=== PATIENT | male | born 1955 | race Two or more races ===

== ENCOUNTER 2022-04-03 20:47 | Inpatient (IN) | payer MEDICARE, MEDICAID ==
[~2022-04-03] VITALS: Ht 162.6 cm; Wt 64.5 kg
[~2022-04-03 20:47] MED LIST: ALBUAER3 IN; AMOX-263 PO; AZIT500T66 PO; FLUT110A INH; Glipizide PO; LIS5T PO; METO25TA93 PO; SENN8.6T92 PO
[2022-04-03] MEDS ORDERED: ALBUTEROL SULF 2.5 MG/0.5ML(0.5%) NEB SOLN NEB ONE (22:00)
[2022-04-03] MEDS ORDERED: methylPREDNISolone SOD SUCC 125 MG/2 ML VL IV ONE (22:00)
[2022-04-03] MEDS ORDERED: IPRATROPIUM BROM 0.5 MG/2.5ML INH SOL NEB ONE (22:00)
[2022-04-03 22:12] LABS: Basophils # (auto) 0 10 ^3/uL (0-0.2); Basophils % (auto) 0.3 % (0.0-2.0); Eosinophils # (auto) 0.1 10 ^3/uL (0-0.8); Eosinophils % (auto) 1.6 % (0.0-7.0); Hematocrit 31.7 % (41.0-53.0); Hemoglobin 10.6 g/dL (13.5-17.5); Lymphocytes # (auto) 1.5 10 ^3/uL (0.4-5.4); Lymphocytes % (auto) 20.8 % (10.0-50.0); Mean Corpuscular Hemoglobin 31.2 pg (28.0-32.0); Mean Corpuscular Hgb Conc. 33.3 g/dL (32.0-36.0); Mean Corpuscular Volume 93.8 fL (80.0-100.0); Monocytes % (auto) 13.4 % (0.0-12.0); Neutrophils # (auto) 4.5 10 ^3/uL (1.6-8.6); Neutrophils % (auto) 63.9 % (37.0-80.0); Red Blood Cells 3.38 10^6/uL (4.5-5.90); Red Cell Distribution Width 13.2 % (11.8-14.3); White Blood Cell 7.1 10^3/uL (4.4-10.8)
[2022-04-03 22:31] LABS: Albumin 3.8 g/dL (3.4-5.0); Calcium 8.9 mg/dL (8.5-10.1); Potassium 5.2 mmol/L (3.5-5.1)
[2022-04-03 22:35] LABS: BUN/Creatinine Ratio 24.8; Bilirubin, Total 0.4 mg/dL (0.2-1.0); Total Protein 8.4 g/dL (6.4-8.2)
[2022-04-04] MEDS ORDERED: ACETAMINOPHEN 325 MG TAB PO PRN (00:30)
[2022-04-04] MEDS ORDERED: ONDANSETRON HCL 4 MG/2 ML VIAL IV PRN (00:30)
[2022-04-04] MEDS ORDERED: ALBUTEROL SULF 2.5 MG/0.5ML(0.5%) NEB SOLN NEB PRN (00:30)
[2022-04-04] MEDS ORDERED: MORPHINE SULFATE INJ 2 MG/ml SYRG IV PRN (00:30)
[2022-04-04] MEDS ORDERED: HYDROcodone-ACET 5/325MG TAB PO PRN (00:30)
[2022-04-04] MEDS ORDERED: DEXTROSE (50%) 50ML SYRG IV PRN (00:30)
[2022-04-04] MEDS ORDERED: LORazepam 0.5 MG TAB PO PRN (00:30)
[2022-04-04] MEDS ORDERED: SODIUM CHLORIDE 0.9% 1,000 ML IV SCH (00:30)
[2022-04-04] MEDS ORDERED: DOCUSATE SOD 100 MG CAP PO PRN (00:30)
[2022-04-04 00:46] VITALS: BP 153/74
[2022-04-04 01:09] LABS: Urine Bacteria NONE SEEN /hpf (None Seen); Urine Blood Negative /uL (Negative); Urine Specific Gravity 1.007 (1.001-1.035); Urine WBC <1 /hpf (0 - 3)
[2022-04-04] MEDS: cefTRIAXone 1GM/50ML D5W 50 ML IV SCH ×2 (01:35→11:13)
[2022-04-04] MEDS: AZITHROMYCIN 500MG/ 250ML 250 ML IV SCH ×2 (02:05→11:31)
[2022-04-04 06:24] LABS: Basophils # (auto) 0 10 ^3/uL (0-0.2); Basophils % (auto) 0.1 % (0.0-2.0); Eosinophils # (auto) 0 10 ^3/uL (0-0.8); Hematocrit 31.9 % (41.0-53.0); Hemoglobin 10.7 g/dL (13.5-17.5); Lymphocytes # (auto) 0.5 10 ^3/uL (0.4-5.4); Lymphocytes % (auto) 6.9 % (10.0-50.0); Mean Corpuscular Hemoglobin 31.8 pg (28.0-32.0); Mean Corpuscular Hgb Conc. 33.6 g/dL (32.0-36.0); Mean Corpuscular Volume 94.5 fL (80.0-100.0); Monocytes # (auto) 0.1 10 ^3/uL (0-1.3); Monocytes % (auto) 1.9 % (0.0-12.0); Neutrophils % (auto) 91.1 % (37.0-80.0); Nucleated Red Blood Cells % 0.1 %; Red Blood Cells 3.37 10^6/uL (4.5-5.90); Red Cell Distribution Width 13.2 % (11.8-14.3); White Blood Cell 7.7 10^3/uL (4.4-10.8)
[2022-04-04 06:31] LABS: Calcium 9.1 mg/dL (8.5-10.1); Potassium 5.2 mmol/L (3.5-5.1)
[2022-04-04 06:36] LABS: BUN/Creatinine Ratio 34.3
[2022-04-04] MEDS: ACCU-CHEK COMFORT CURVE STRIP VI SCH ×4 (06:49→23:34)
[2022-04-04] MEDS: InsuLIN REG 1unit/0.01ml Soln (100units/ml) SC SCH ×4 (06:49→23:36)
[2022-04-04 17:00] VITALS: BP 147/74
[2022-04-04 19:25] VITALS: BP 147/74
[2022-04-04] MEDS ORDERED: AMLO-496 PO (19:36)
[2022-04-04] MEDS ORDERED: LOSA-39 PO (19:36)
[2022-04-04] MEDS ORDERED: CARV25TA55 PO (19:36)
[2022-04-04] MEDS ORDERED: SITA100T7 PO (19:36)
[2022-04-04] MEDS ORDERED: DAPA1TAB4 PO (19:36)
[2022-04-04] MEDS ORDERED: ATOR20TA50 PO (19:36)
[2022-04-04 22:00] VITALS: BP 134/70
[2022-04-05 04:26] LABS: BUN/Creatinine Ratio 35.1; Calcium 9.3 mg/dL (8.5-10.1); Magnesium 2.5 mg/dL (1.6-2.6); Potassium 4.8 mmol/L (3.5-5.1)
[2022-04-05 05:00] VITALS: BP 132/71
[2022-04-05] MEDS: ACCU-CHEK COMFORT CURVE STRIP VI SCH ×4 (05:47→23:17)
[2022-04-05] MEDS: InsuLIN REG 1unit/0.01ml Soln (100units/ml) SC SCH ×4 (05:51→23:19)
[2022-04-05 08:00] VITALS: BP 142/80
[2022-04-05] MEDS: cefTRIAXone 1GM/50ML D5W 50 ML IV SCH (09:51)
[2022-04-05] MEDS: AZITHROMYCIN 500MG/ 250ML 250 ML IV SCH (09:53)
[2022-04-05 12:00] VITALS: BP 117/75
[2022-04-05] MEDS: IPRATROPIUM BROM 0.5 MG/2.5ML INH SOL NEB SCH ×3 (12:58→23:51)
[2022-04-05] MEDS: ALBUTEROL SULF 2.5 MG/0.5ML(0.5%) NEB SOLN NEB SCH ×3 (12:58→23:51)
[2022-04-05] MEDS: ACETYLCYSTEINE 10 %(100MG/ML) SOL 4ML NEB SCH ×3 (12:59→23:51)
[2022-04-05] MEDS: methylPREDNISolone SOD SUCC 40 MG/ML VL IV SCH ×2 (15:08→19:38)
[2022-04-05 16:00] VITALS: BP 144/72
[2022-04-05 22:00] VITALS: BP 140/73
[2022-04-05] MEDS: INSULIN LANTUS (GLARGINE) 1 /0.01ml (100units/ml) SC SCH (23:18)
[2022-04-06] MEDS: methylPREDNISolone SOD SUCC 40 MG/ML VL IV SCH ×4 (00:02→22:39)
[2022-04-06 05:00] VITALS: BP 139/70
[2022-04-06] MEDS: IPRATROPIUM BROM 0.5 MG/2.5ML INH SOL NEB SCH ×3 (06:21→18:22)
[2022-04-06] MEDS: ALBUTEROL SULF 2.5 MG/0.5ML(0.5%) NEB SOLN NEB SCH ×3 (06:21→18:22)
[2022-04-06] MEDS: ACETYLCYSTEINE 10 %(100MG/ML) SOL 4ML NEB SCH ×3 (06:22→18:22)
[2022-04-06] MEDS: InsuLIN REG 1unit/0.01ml Soln (100units/ml) SC SCH ×3 (06:47→16:52)
[2022-04-06] MEDS: ACCU-CHEK COMFORT CURVE STRIP VI SCH ×3 (06:47→20:00)
[2022-04-06] MEDS: INSULIN LANTUS (GLARGINE) 1 /0.01ml (100units/ml) SC SCH ×2 (06:49→22:40)
[2022-04-06] MEDS: cefTRIAXone 1GM/50ML D5W 50 ML IV SCH (08:57)
[2022-04-06] MEDS: AZITHROMYCIN 500MG/ 250ML 250 ML IV SCH (08:58)
[2022-04-06 09:26] VITALS: BP 154/83
[2022-04-06] MEDS ORDERED: amLODIPine BESYLATE 5 MG TAB PO ONE (10:00)
[2022-04-06] MEDS ORDERED: FUROSEMIDE 20 MG/2 ML VIAL IV SCH (10:00)
[2022-04-06] MEDS ORDERED: CARVEDILOL 12.5 MG TAB PO ONE (10:00)
[2022-04-06] MEDS ORDERED: FUROSEMIDE 20 MG/2 ML VIAL IV ONE (10:00)
[2022-04-06] MEDS ORDERED: CHOL100029 PO (10:21)
[2022-04-06] MEDS ORDERED: ALBU108A5 IN (10:21)
[2022-04-06] MEDS ORDERED: GLIP10TA9 PO (10:21)
[2022-04-06] MEDS ORDERED: FAMO-12 PO (10:21)
[2022-04-06] MEDS ORDERED: UMEC1AER IN (10:21)
[2022-04-06] MEDS ORDERED: CHOL100040 PO (10:26)
[2022-04-06] MEDS ORDERED: LOSARTAN POTASSIUM 50 MG TAB PO ONE ×3 (11:00→11:30)
[2022-04-06 13:00] VITALS: BP 139/66
[2022-04-06 16:56] VITALS: BP 137/69
[2022-04-06 22:00] VITALS: BP 150/79
[2022-04-06] MEDS: ATORVASTATIN 20 MG TAB PO SCH (22:39)
[2022-04-07] MEDS: ACCU-CHEK COMFORT CURVE STRIP VI SCH ×4 (00:46→17:46)
[2022-04-07] MEDS: InsuLIN REG 1unit/0.01ml Soln (100units/ml) SC SCH ×5 (00:50→23:05)
[2022-04-07 04:02] VITALS: BP 150/79
[2022-04-07 05:00] VITALS: BP 124/75
[2022-04-07 05:35] LABS: BUN/Creatinine Ratio 40.4; Calcium 9.2 mg/dL (8.5-10.1); Potassium 4.4 mmol/L (3.5-5.1)
[2022-04-07] MEDS: methylPREDNISolone SOD SUCC 40 MG/ML VL IV SCH ×2 (06:03→21:04)
[2022-04-07] MEDS: IPRATROPIUM BROM 0.5 MG/2.5ML INH SOL NEB SCH ×5 (06:46→23:40)
[2022-04-07] MEDS: ALBUTEROL SULF 2.5 MG/0.5ML(0.5%) NEB SOLN NEB SCH ×5 (06:46→23:40)
[2022-04-07] MEDS: ACETYLCYSTEINE 10 %(100MG/ML) SOL 4ML NEB SCH ×5 (06:47→23:40)
[2022-04-07] MEDS: INSULIN LANTUS (GLARGINE) 1 /0.01ml (100units/ml) SC SCH ×2 (07:03→23:05)
[2022-04-07] MEDS: cefTRIAXone 1GM/50ML D5W 50 ML IV SCH (09:08)
[2022-04-07] MEDS: AZITHROMYCIN 500MG/ 250ML 250 ML IV SCH (09:08)
[2022-04-07] MEDS: CHOLECALCIFEROL (VITD3) 1,000UNIT=25mCg TAB PO SCH (09:09)
[2022-04-07] MEDS: FUROSEMIDE 20 MG/2 ML VIAL IV SCH (09:09)
[2022-04-07] MEDS: ASPirin 81 mg TAB PO SCH (09:10)
[2022-04-07] MEDS: CARVEDILOL 12.5 MG TAB PO SCH (09:10)
[2022-04-07] MEDS: LOSARTAN POTASSIUM 50 MG TAB PO SCH (09:10)
[2022-04-07 09:25] VITALS: BP 152/84
[2022-04-07] MEDS ORDERED: BISACODYL 5 MG EC TAB PO ONE ×2 (11:00→12:15)
[2022-04-07] MEDS ORDERED: POLYETHYLENE GLYCOL 17 GM PWDR PO ONE ×2 (11:00→12:15)
[2022-04-07 17:18] VITALS: BP 136/77
[2022-04-07] MEDS: amLODIPine BESYLATE 5 MG TAB PO SCH (21:04)
[2022-04-07] MEDS: ATORVASTATIN 20 MG TAB PO SCH (21:05)
[2022-04-07 22:00] VITALS: BP 116/71
[2022-04-08 05:00] VITALS: BP 114/75
[2022-04-08] MEDS: INSULIN LANTUS (GLARGINE) 1 /0.01ml (100units/ml) SC SCH (06:13)
[2022-04-08] MEDS: InsuLIN REG 1unit/0.01ml Soln (100units/ml) SC SCH ×2 (06:13→12:18)
[2022-04-08] MEDS: ACCU-CHEK COMFORT CURVE STRIP VI SCH ×3 (06:13→12:17)
[2022-04-08] MEDS: IPRATROPIUM BROM 0.5 MG/2.5ML INH SOL NEB SCH ×2 (06:52→13:02)
[2022-04-08] MEDS: ACETYLCYSTEINE 10 %(100MG/ML) SOL 4ML NEB SCH ×2 (06:52→13:02)
[2022-04-08] MEDS: ALBUTEROL SULF 2.5 MG/0.5ML(0.5%) NEB SOLN NEB SCH ×2 (06:52→13:02)
[2022-04-08] MEDS: FUROSEMIDE 20 MG/2 ML VIAL IV SCH (08:49)
[2022-04-08] MEDS: cefTRIAXone 1GM/50ML D5W 50 ML IV SCH (08:49)
[2022-04-08] MEDS: methylPREDNISolone SOD SUCC 40 MG/ML VL IV SCH (08:49)
[2022-04-08] MEDS: LOSARTAN POTASSIUM 50 MG TAB PO SCH (08:50)
[2022-04-08] MEDS: CARVEDILOL 12.5 MG TAB PO SCH (08:50)
[2022-04-08] MEDS: ASPirin 81 mg TAB PO SCH (08:50)
[2022-04-08] MEDS: amLODIPine BESYLATE 5 MG TAB PO SCH (08:51)
[2022-04-08 09:00] VITALS: BP 140/64
[2022-04-08] MEDS: CHOLECALCIFEROL (VITD3) 1,000UNIT=25mCg TAB PO SCH (10:00)
[2022-04-08] MEDS ORDERED: POLYETHYLENE GLYCOL 17 GM PWDR PO SCH (10:00)
[2022-04-08] MEDS ORDERED: ERGO1CAP23 PO (11:25)
[2022-04-08] MEDS ORDERED: PRED10TA PO (11:25)
[2022-04-08] MEDS ORDERED: PRED20TA2 PO (11:25)
[2022-04-08] MEDS ORDERED: FURO1TAB33 PO (11:25)
[2022-04-08] MEDS ORDERED: PRE5T PO (11:25)
[2022-04-08 11:30] VITALS: BP 140/64
== END 2022-04-08 13:16 | disposition home or self-care (01) | DRG 177 ==
LOC: ER 20:47 → OVERFLOW 04-04 00:23 → CENTRAL 04-04 17:03
PROVIDERS: ADMIT Hospitalist; ATTEND Internal Medicine
DX: J15.6 Pneumonia due to other Gram-negative bacteria (principal); I50.33 Acute on chronic diastolic (congestive) heart failure; J96.20 Acute and chronic respiratory failure, unspecified whether with hypoxia or hypercapnia; J44.1 Chronic obstructive pulmonary disease with (acute) exacerbation; E66.01 Morbid (severe) obesity due to excess calories; E11.9 Type 2 diabetes mellitus without complications; I11.0 Hypertensive heart disease with heart failure; Z20.822 Contact with and (suspected) exposure to COVID-19; Z81.8 Family history of other mental and behavioral disorders; Z82.49 Family history of ischemic heart disease and other diseases of the circulatory system; Z82.5 Family history of asthma and other chronic lower respiratory diseases; Z83.3 Family history of diabetes mellitus; Z90.2 Acquired absence of lung [part of]; Z68.34 Body mass index [BMI] 34.0-34.9, adult
CPT/HCPCS: 36415; 36600; 71045; 71250; 80048; 80053; 80061; 81001; 82306; 82805; 82962; 83036; 83735; 83880; 84443; 84484; 85025; 85379; 87070; 87205; 93306; 94640; 96365; 96366; 96368; 96375; 99291; G0378; J0696; J1815

== ENCOUNTER → 2022-05-23 | Outpatient (CLI) | payer MEDICARE, MEDICAID ==
[~2022-05-23] MED LIST changes: +ALBU108A5 IN; -ALBUAER3 IN; +AMLO-496 PO; -AMOX-263 PO; +ATOR20TA50 PO; -AZIT500T66 PO; +CARV25TA55 PO; +CHOL100040 PO; +DAPA1TAB4 PO; +ERGO1CAP23 PO; +FAMO-12 PO; -FLUT110A INH; +FURO1TAB33 PO; +GLIP10TA9 PO; -Glipizide PO; -LIS5T PO; +LOSA-39 PO; -METO25TA93 PO; +PRE5T PO; +PRED10TA PO; +PRED20TA2 PO; -SENN8.6T92 PO; +SITA100T7 PO; +UMEC1AER IN
[2022-05-23 09:29] LABS: Basophils # (auto) 0 10 ^3/uL (0-0.2); Basophils % (auto) 0.6 % (0.0-2.0); Eosinophils # (auto) 0.1 10 ^3/uL (0-0.8); Eosinophils % (auto) 0.9 % (0.0-7.0); Hematocrit 33.6 % (41.0-53.0); Hemoglobin 10.9 g/dL (13.5-17.5); Lymphocytes # (auto) 1.3 10 ^3/uL (0.4-5.4); Lymphocytes % (auto) 14.5 % (10.0-50.0); Mean Corpuscular Hgb Conc. 32.5 g/dL (32.0-36.0); Mean Corpuscular Volume 95.6 fL (80.0-100.0); Monocytes # (auto) 0.8 10 ^3/uL (0-1.3); Monocytes % (auto) 8.7 % (0.0-12.0); Neutrophils # (auto) 6.6 10 ^3/uL (1.6-8.6); Neutrophils % (auto) 75.3 % (37.0-80.0); Red Blood Cells 3.51 10^6/uL (4.5-5.90); Red Cell Distribution Width 14.1 % (11.8-14.3); White Blood Cell 8.8 10^3/uL (4.4-10.8)
[2022-05-23 10:20] LABS: Albumin 3.6 g/dL (3.4-5.0); Calcium 9.1 mg/dL (8.5-10.1); Potassium 4.6 mmol/L (3.5-5.1)
[2022-05-23 10:23] LABS: BUN/Creatinine Ratio 30.3; Bilirubin, Total 0.4 mg/dL (0.2-1.0); Total Protein 7.7 g/dL (6.4-8.2)
== END | disposition home or self-care (01) ==
LOC: LAB 09:13
PROVIDERS: ATTEND Internal Medicine
DX: Z12.31 Encounter for screening mammogram for malignant neoplasm of breast (principal); E11.9 Type 2 diabetes mellitus without complications; I10 Essential (primary) hypertension
CPT/HCPCS: 36415; 80053; 82043; 85025

== ENCOUNTER 2022-12-16 15:41 | Emergency (ER) | payer MEDICARE, MEDICAID ==
[~2022-12-16] VITALS: Ht 167.6 cm; Wt 78.0 kg
[2022-12-16 17:22] LABS: Basophils # (auto) 0 10 ^3/uL (0-0.2); Basophils % (auto) 0.4 % (0.0-2.0); Eosinophils # (auto) 0.1 10 ^3/uL (0-0.8); Eosinophils % (auto) 0.7 % (0.0-7.0); Hematocrit 33.9 % (41.0-53.0); Hemoglobin 11.4 g/dL (13.5-17.5); Lymphocytes # (auto) 1.7 10 ^3/uL (0.4-5.4); Lymphocytes % (auto) 17.7 % (10.0-50.0); Mean Corpuscular Hemoglobin 31.5 pg (28.0-32.0); Mean Corpuscular Hgb Conc. 33.7 g/dL (32.0-36.0); Mean Corpuscular Volume 93.6 fL (80.0-100.0); Monocytes % (auto) 9.9 % (0.0-12.0); Neutrophils % (auto) 71.3 % (37.0-80.0); Nucleated Red Blood Cells % 0.1 %; Red Blood Cells 3.63 10^6/uL (4.5-5.90); Red Cell Distribution Width 13.2 % (11.8-14.3); White Blood Cell 9.8 10^3/uL (4.4-10.8)
[2022-12-16 17:47] LABS: Albumin 3.9 g/dL (3.4-5.0); BUN/Creatinine Ratio 36.8; Calcium 9.8 mg/dL (8.5-10.1); Potassium 4.4 mmol/L (3.5-5.1)
[2022-12-16 17:50] LABS: Bilirubin, Total 0.6 mg/dL (0.2-1.0); Total Protein 8.1 g/dL (6.4-8.2)
[2022-12-16 19:38] VITALS: BP 160/74
== END 2022-12-16 20:28 | disposition home or self-care (01) ==
LOC: EDBD 15:41 → ER 15:41
DX: I10 Essential (primary) hypertension (principal); K21.9 Gastro-esophageal reflux disease without esophagitis; E11.9 Type 2 diabetes mellitus without complications; J44.9 Chronic obstructive pulmonary disease, unspecified; M19.90 Unspecified osteoarthritis, unspecified site
CPT/HCPCS: 36415; 71045; 80053; 84484; 85025; 93005

== ENCOUNTER → 2023-02-06 | Outpatient (CLI) | payer MEDICARE, MEDICAID ==
[2023-02-06 16:00] LABS: Micro Albumin 65.5 mg/L (0-30.0)
[2023-02-06 16:01] LABS: Creatinine, Urine < 30.0 mg/dL (30.0-125.0)
== END | disposition home or self-care (01) ==
LOC: LAB 13:28
PROVIDERS: ATTEND Internal Medicine
DX: Z12.11 Encounter for screening for malignant neoplasm of colon (principal); E11.9 Type 2 diabetes mellitus without complications; I10 Essential (primary) hypertension; D64.9 Anemia, unspecified; Z79.899 Other long term (current) drug therapy
CPT/HCPCS: 36415; 82043; 82306; 82570; 83036; 84153; 84443

== ENCOUNTER → 2023-02-08 | Outpatient (CLI) | payer MEDICARE, MEDICAID | END | disposition home or self-care (01) | LOC: XYW 13:14 | PROVIDERS: ATTEND Internal Medicine | DX: I45.10 Unspecified right bundle-branch block (principal) | CPT/HCPCS: 93306 ==

== ENCOUNTER → 2023-02-21 | Outpatient (CLI) | payer MEDICARE, MEDICAID | END | disposition home or self-care (01) | LOC: LAB 13:40 | PROVIDERS: ATTEND Internal Medicine | DX: I10 Essential (primary) hypertension (principal); E11.9 Type 2 diabetes mellitus without complications; D64.9 Anemia, unspecified; Z12.11 Encounter for screening for malignant neoplasm of colon | CPT/HCPCS: 82270 ==

== ENCOUNTER → 2023-03-15 | Outpatient (CLI) | payer MEDICARE, MEDICAID ==
[~2023-03-15] MED LIST changes: -AMLO-496 PO; +AMLO1TAB23 PO; -LOSA-39 PO; +LOSA100T58 PO
[2023-03-15 09:14] LABS: Basophils # (auto) 0 10 ^3/uL (0-0.2); Basophils % (auto) 0.4 % (0.0-2.0); Eosinophils # (auto) 0.1 10 ^3/uL (0-0.8); Eosinophils % (auto) 1.4 % (0.0-7.0); Hematocrit 32.3 % (41.0-53.0); Hemoglobin 10.8 g/dL (13.5-17.5); Lymphocytes # (auto) 1.3 10 ^3/uL (0.4-5.4); Mean Corpuscular Hemoglobin 31.6 pg (28.0-32.0); Mean Corpuscular Hgb Conc. 33.4 g/dL (32.0-36.0); Mean Corpuscular Volume 94.5 fL (80.0-100.0); Monocytes # (auto) 0.7 10 ^3/uL (0-1.3); Monocytes % (auto) 7.9 % (0.0-12.0); Neutrophils # (auto) 6.4 10 ^3/uL (1.6-8.6); Neutrophils % (auto) 75.3 % (37.0-80.0); Nucleated Red Blood Cells % 0.1 %; Red Blood Cells 3.41 10^6/uL (4.5-5.90); Red Cell Distribution Width 13.3 % (11.8-14.3); White Blood Cell 8.5 10^3/uL (4.4-10.8)
[2023-03-15 10:18] LABS: Cholesterol 131 mg/dL (< 200); HDL Cholesterol 48 mg/dL (40-59); LDL Cholesterol 60 mg/dL (< 100); Triglycerides 232 mg/dL (< 150)
== END | disposition home or self-care (01) ==
LOC: LAB 08:52
PROVIDERS: ATTEND Internal Medicine
DX: E11.9 Type 2 diabetes mellitus without complications (principal); I10 Essential (primary) hypertension; E78.5 Hyperlipidemia, unspecified
CPT/HCPCS: 36415; 80061; 85025

== ENCOUNTER 2023-07-08 17:02 | Emergency (ER) | payer MEDICARE, MEDICAID ==
[~2023-07-08] VITALS: Ht 162.6 cm; Wt 85.0 kg
[2023-07-08 19:09] VITALS: BP 124/64; PULSE 79; RESP 16; TEMP 98.2; O2SAT 100
[2023-07-08] MEDS ORDERED: IBUPROFEN 800 MG TAB PO ONE (19:30)
[2023-07-08] MEDS ORDERED: IBUP1TAB5 PO (21:45)
== END 2023-07-08 22:00 ==
LOC: ER 17:02
DX: M54.50 Low back pain, unspecified (principal); M25.552 Pain in left hip; I10 Essential (primary) hypertension; K21.9 Gastro-esophageal reflux disease without esophagitis; E11.9 Type 2 diabetes mellitus without complications; J44.9 Chronic obstructive pulmonary disease, unspecified; Z79.899 Other long term (current) drug therapy; Z79.1 Long term (current) use of non-steroidal anti-inflammatories (NSAID); Z88.8 Allergy status to other drugs, medicaments and biological substances; W06.XXXA Fall from bed, initial encounter; Y93.89 Activity, other specified; Y92.89 Other specified places as the place of occurrence of the external cause; Y99.8 Other external cause status
CPT/HCPCS: 72100; 73502

== ENCOUNTER → 2023-07-18 | Outpatient (CLI) | payer MEDICARE, MEDICAID ==
[~2023-07-18] MED LIST changes: +IBUP1TAB5 PO
[2023-07-18 09:38] LABS: Triglycerides 148 mg/dL (< 150)
[2023-07-18 09:40] LABS: HDL Cholesterol 34 mg/dL (40-59)
[2023-07-18 09:41] LABS: Cholesterol 114 mg/dL (< 200)
[2023-07-18 09:49] LABS: Creatinine, Urine 40.89 mg/dL (30.0-125.0)
[2023-07-18 10:26] LABS: LDL Cholesterol 52 mg/dL (< 100)
== END | disposition home or self-care (01) ==
LOC: LAB 09:00
PROVIDERS: ATTEND Internal Medicine
DX: E11.9 Type 2 diabetes mellitus without complications (principal); E78.5 Hyperlipidemia, unspecified
CPT/HCPCS: 36415; 80061; 82043; 82570; 83036

== ENCOUNTER → 2023-08-21 | Outpatient (CLI) | payer MEDICARE, MEDICAID ==
[2023-08-21 10:56] LABS: Calcium 9.7 mg/dL (8.5-10.1); Chloride 102 mmol/L (98-107); Potassium 5.1 mmol/L (3.5-5.1); Sodium 138 mmol/L (136-145)
[2023-08-21 10:57] LABS: Anion Gap 3 (5-15); Carbon Dioxide 33 mmol/L (20-30)
[2023-08-21 11:02] LABS: BUN/Creatinine Ratio 25.8 (10.0-20.0); Blood Urea Nitrogen 32 mg/dL (9-23); Glucose 181 mg/dL (74-106)
[2023-08-21 11:56] LABS: Creatinine, Urine 23.52 mg/dL (30.0-125.0)
== END | disposition home or self-care (01) ==
LOC: LAB 09:49
PROVIDERS: ATTEND Internal Medicine
DX: K22.89 Other specified disease of esophagus (principal); R42 Dizziness and giddiness
CPT/HCPCS: 36415; 80048; 82043; 82570

== ENCOUNTER → 2023-08-21 | Outpatient (CLI) | payer MEDICARE, MEDICAID | END | disposition home or self-care (01) | LOC: XYW 08:40 | PROVIDERS: ATTEND Internal Medicine | DX: I65.23 Occlusion and stenosis of bilateral carotid arteries (principal); R42 Dizziness and giddiness | CPT/HCPCS: 93886 ==

== ENCOUNTER → 2023-10-22 | Outpatient (CLI) | payer MEDICARE, MEDICAID ==
[2023-10-22 14:02] LABS: Chloride 100 mmol/L (98-107); Potassium 4.8 mmol/L (3.5-5.1); Sodium 133 mmol/L (136-145)
[2023-10-22 14:03] LABS: Anion Gap 2 (5-15); Carbon Dioxide 31 mmol/L (20-30)
[2023-10-22 14:04] LABS: Calcium 9.2 mg/dL (8.7-10.4)
[2023-10-22 14:09] LABS: BUN/Creatinine Ratio 28.5 (10.0-20.0); Blood Urea Nitrogen 35 mg/dL (9-23); Glucose 209 mg/dL (74-106)
== END | disposition home or self-care (01) ==
LOC: LAB 13:39
PROVIDERS: ATTEND Internal Medicine
DX: I10 Essential (primary) hypertension (principal); E11.9 Type 2 diabetes mellitus without complications
CPT/HCPCS: 36415; 80048; 83036

== ENCOUNTER → 2024-03-03 | Outpatient (CLI) | payer MEDICARE, MEDICAID ==
[~2024-03-03] MED LIST changes: +LOSA-535 PO; -LOSA100T58 PO
[2024-03-03 09:23] LABS: Chloride 101 mmol/L (98-107); Potassium 4.7 mmol/L (3.5-5.1); Sodium 137 mmol/L (136-145)
[2024-03-03 09:24] LABS: Anion Gap 5 (5-15); Calcium 9.7 mg/dL (8.5-10.1); Carbon Dioxide 31 mmol/L (20-30)
[2024-03-03 09:26] LABS: Creatinine, Urine 49.88 mg/dL (30.0-125.0)
[2024-03-03 09:29] LABS: BUN/Creatinine Ratio 28.8 (10.0-20.0); Blood Urea Nitrogen 53 mg/dL (9-23); Glucose 202 mg/dL (74-106)
== END | disposition home or self-care (01) ==
LOC: LAB 08:25
PROVIDERS: ATTEND Internal Medicine
DX: E11.9 Type 2 diabetes mellitus without complications (principal)
CPT/HCPCS: 36415; 80048; 82043; 82570; 83036

== ENCOUNTER → 2024-03-18 | Outpatient (CLI) | payer MEDICARE, MEDICAID ==
[2024-03-18 10:24] LABS: Chloride 102 mmol/L (98-107); Potassium 4.5 mmol/L (3.5-5.1); Sodium 138 mmol/L (136-145)
[2024-03-18 10:25] LABS: Anion Gap 5 (5-15); Carbon Dioxide 31 mmol/L (20-30)
[2024-03-18 10:30] LABS: BUN/Creatinine Ratio 29.5 (10.0-20.0); Blood Urea Nitrogen 52 mg/dL (9-23); Glucose 201 mg/dL (74-106)
== END | disposition home or self-care (01) ==
LOC: LAB 09:29
PROVIDERS: ATTEND Internal Medicine
DX: E11.9 Type 2 diabetes mellitus without complications (principal)
CPT/HCPCS: 36415; 80048

== ENCOUNTER → 2024-04-22 | Outpatient (CLI) | payer MEDICARE, MEDICAID ==
[2024-04-22 09:28] LABS: Anion Gap 5 (5-15); Carbon Dioxide 30 mmol/L (20-30); Chloride 102 mmol/L (98-107); Potassium 4.5 mmol/L (3.5-5.1); Sodium 137 mmol/L (136-145)
[2024-04-22 09:30] LABS: Calcium 9.8 mg/dL (8.7-10.4)
[2024-04-22 09:34] LABS: BUN/Creatinine Ratio 27.2 (10.0-20.0); Blood Urea Nitrogen 41 mg/dL (9-23); Glucose 151 mg/dL (74-106)
== END | disposition home or self-care (01) ==
LOC: LAB 08:52
PROVIDERS: ATTEND Internal Medicine
DX: E11.9 Type 2 diabetes mellitus without complications (principal)
CPT/HCPCS: 36415; 80048; 83036

== ENCOUNTER → 2024-07-24 | Outpatient (CLI) | payer MEDICARE, MEDICAID ==
[2024-07-24 11:39] LABS: Basophils # (auto) 0.1 10 ^3/uL (0-0.2); Basophils % (auto) 0.6 % (0.0-2.0); Eosinophils # (auto) 0.1 10 ^3/uL (0-0.8); Eosinophils % (auto) 1.2 % (0.0-7.0); Hemoglobin 10.5 g/dL (13.5-17.5); Lymphocytes # (auto) 1.8 10 ^3/uL (0.4-5.4); Lymphocytes % (auto) 19.1 % (10.0-50.0); Mean Corpuscular Hemoglobin 31.9 pg (28.0-32.0); Mean Corpuscular Hgb Conc. 33.8 g/dL (32.0-36.0); Mean Corpuscular Volume 94.4 fL (80.0-100.0); Monocytes % (auto) 10.5 % (0.0-12.0); Neutrophils # (auto) 6.4 10 ^3/uL (1.6-8.6); Neutrophils % (auto) 68.6 % (37.0-80.0); Platelet Count (auto) 195 10^3/uL (140-450); Red Blood Cells 3.29 10^6/uL (4.5-5.90); Red Cell Distribution Width 14.1 % (11.8-14.3); White Blood Cell 9.4 10^3/uL (4.4-10.8)
[2024-07-24 12:16] LABS: Alanine Aminotransferase 28 U/L (7-40); Albumin 4.3 g/dL (3.2-4.8); Alkaline Phosphatase 107 U/L (46-116); Anion Gap 5 (5-15); Aspartate Aminotransferase 14 U/L (13-40); BUN/Creatinine Ratio 29.2 (10.0-20.0); Bilirubin, Total 0.4 mg/dL (0.2-1.0); Blood Urea Nitrogen 49 mg/dL (9-23); Calcium 9.7 mg/dL (8.7-10.4); Carbon Dioxide 28 mmol/L (20-31); Chloride 101 mmol/L (98-107); Glucose 179 mg/dL (74-106); Potassium 4.5 mmol/L (3.5-5.1); Sodium 134 mmol/L (136-145); Total Protein 7.6 g/dL (5.7-8.2)
== END | disposition home or self-care (01) ==
LOC: LAB 11:17
PROVIDERS: ATTEND Internal Medicine
DX: Z12.11 Encounter for screening for malignant neoplasm of colon (principal); E11.9 Type 2 diabetes mellitus without complications; D64.9 Anemia, unspecified
CPT/HCPCS: 36415; 80053; 85025

== ENCOUNTER → 2024-11-24 | Outpatient (CLI) | payer MEDICARE, MEDICAID ==
[2024-11-24 15:19] LABS: Urine Bacteria None Seen /hpf (None Seen)
[2024-11-24 16:15] LABS: Urine Blood Negative /uL (Negative); Urine Clarity Clear (Clear); Urine Mucus FEW (None Seen); Urine Protein, UAD Negative (Negative); Urine Specific Gravity 1.005 (1.001-1.035); Urine Squamous Epithelial Cell None Seen /hpf (<5); Urine Urobilinogen Normal (Negative)
[2024-11-24 16:16] LABS: Urine Color STRAW (Yellow)
[2024-11-24 16:23] LABS: Basophils # (auto) 0 10 ^3/uL (0-0.2); Basophils % (auto) 0.2 % (0.0-2.0); Eosinophils # (auto) 0.1 10 ^3/uL (0-0.8); Eosinophils % (auto) 0.6 % (0.0-7.0); Hematocrit 30.7 % (41.0-53.0); Lymphocytes # (auto) 1.6 10 ^3/uL (0.4-5.4); Lymphocytes % (auto) 17.1 % (10.0-50.0); Mean Corpuscular Hemoglobin 31.3 pg (28.0-32.0); Mean Corpuscular Hgb Conc. 32.5 g/dL (32.0-36.0); Mean Corpuscular Volume 96.3 fL (80.0-100.0); Monocytes # (auto) 0.9 10 ^3/uL (0-1.3); Monocytes % (auto) 9.3 % (0.0-12.0); Neutrophils # (auto) 6.9 10 ^3/uL (1.6-8.6); Neutrophils % (auto) 72.8 % (37.0-80.0); Platelet Count (auto) 206 10^3/uL (140-450); Red Blood Cells 3.19 10^6/uL (4.5-5.90); Red Cell Distribution Width 12.9 % (11.8-14.3); White Blood Cell 9.5 10^3/uL (4.4-10.8)
[2024-11-24 16:30] LABS: Creatinine, Urine 14.1 mg/dL (30.0-125.0); Creatinine, Urine 14.15 mg/dL (30.0-125.0); Urine Protein/Creatinine Ratio 0.42
[2024-11-24 16:38] LABS: Protein, Urine < 6.0 mg/dL (1-14)
[2024-11-24 17:12] LABS: Albumin 4.7 g/dL (3.2-4.8); BUN/Creatinine Ratio 34.1 (10.0-20.0); Calcium 10.1 mg/dL (8.7-10.4); Phosphorus 4.1 mg/dL (2.4-5.1); Potassium 4.5 mmol/L (3.5-5.1); Uric Acid 11.3 mg/dL (3.7-9.2)
== END | disposition home or self-care (01) ==
LOC: LAB 14:50
PROVIDERS: ATTEND Internal Medicine
DX: E11.22 Type 2 diabetes mellitus with diabetic chronic kidney disease (principal); N18.30 Chronic kidney disease, stage 3 unspecified; E11.21 Type 2 diabetes mellitus with diabetic nephropathy; N39.0 Urinary tract infection, site not specified; E21.3 Hyperparathyroidism, unspecified; E55.9 Vitamin D deficiency, unspecified; M10.9 Gout, unspecified; R80.9 Proteinuria, unspecified; D63.1 Anemia in chronic kidney disease
CPT/HCPCS: 36415; 80069; 81001; 82043; 82570; 83036; 84156; 84550; 85025

== ENCOUNTER → 2025-01-05 | Outpatient (CLI) | payer MEDICARE, MEDICAID ==
[2025-01-05 10:40] LABS: Urine Bacteria None Seen /hpf (None Seen)
[2025-01-05 10:57] LABS: Urine Blood Negative /uL (Negative); Urine Clarity Clear (Clear); Urine Color Light-Yellow (Yellow); Urine Protein, UAD Negative (Negative); Urine Specific Gravity 1.013 (1.001-1.035); Urine Squamous Epithelial Cell FEW /hpf (<5); Urine Urobilinogen Normal (Negative); Urine pH 5.5 (5.0-9.0)
[2025-01-05 11:29] LABS: Alanine Aminotransferase 37 U/L (7-40); Alkaline Phosphatase 110 U/L (46-116); Anion Gap 7 (5-15); BUN/Creatinine Ratio 32.2 (10.0-20.0); Carbon Dioxide 31 mmol/L (20-31); Chloride 102 mmol/L (98-107); Potassium 4.8 mmol/L (3.5-5.1); Sodium 140 mmol/L (136-145); Triglycerides 106 mg/dL (< 150)
[2025-01-05 11:30] LABS: Creatinine, Urine 48.37 mg/dL (30.0-125.0); LDL Cholesterol 49 mg/dL (< 100); Total Protein 7.5 g/dL (5.7-8.2)
[2025-01-05 11:31] LABS: Albumin 4.4 g/dL (3.2-4.8); Aspartate Aminotransferase 22 U/L (13-40); Bilirubin, Total 0.4 mg/dL (0.2-1.0); Cholesterol 105 mg/dL (< 200)
[2025-01-05 11:33] LABS: Blood Urea Nitrogen 58 mg/dL (9-23); Glucose 161 mg/dL (74-106); HDL Cholesterol 31 mg/dL (40-59)
== END | disposition home or self-care (01) ==
LOC: LAB 10:17
PROVIDERS: ATTEND Internal Medicine
DX: I12.9 Hypertensive chronic kidney disease with stage 1 through stage 4 chronic kidney disease, or unspecified chronic kidney disease (principal); E11.22 Type 2 diabetes mellitus with diabetic chronic kidney disease; N18.31 Chronic kidney disease, stage 3a
CPT/HCPCS: 36415; 80053; 80061; 81001; 82043; 82570; 83036

== ENCOUNTER 2025-04-01 08:47 | Outpatient (CLI) | payer MEDICARE, MEDICAID ==
[2025-04-01 10:25] LABS: Prostate Specific Antigen 0.44 ng/mL (0.0-4.0)
== END 2025-04-01 17:00 | disposition home or self-care (01) ==
LOC: LAB 08:47
PROVIDERS: ATTEND Internal Medicine
DX: E11.22 Type 2 diabetes mellitus with diabetic chronic kidney disease (principal); N18.9 Chronic kidney disease, unspecified; Z12.5 Encounter for screening for malignant neoplasm of prostate
CPT/HCPCS: 36415; 82607; 83036; 84153; 84443

== ENCOUNTER 2025-07-10 14:48 | Inpatient (IN) | payer MEDICARE, MEDICAID ==
[~2025-07-10] VITALS: Ht 170.2 cm; Wt 90.0 kg
[2025-07-10 16:36] LABS: Hematocrit 33.0 % (41.0-53.0); Hemoglobin 11.0 g/dL (13.5-17.5); Mean Corpuscular Hemoglobin 31.9 pg (28.0-32.0); Mean Corpuscular Volume 95.2 fL (80.0-100.0); Nucleated Red Blood Cells % 0.1 %
[2025-07-10 16:52] LABS: Alanine Aminotransferase 40 U/L (7-40); Albumin 4.4 g/dL (3.2-4.8); Alkaline Phosphatase 134 U/L (46-116); Anion Gap 9 (5-15); BUN/Creatinine Ratio 25.9 (10.0-20.0); Bilirubin, Total 0.4 mg/dL (0.2-1.0); Blood Urea Nitrogen 44 mg/dL (9-23); Calcium 9.1 mg/dL (8.7-10.4); Carbon Dioxide 25 mmol/L (20-31); Chloride 106 mmol/L (98-107); Glucose 127 mg/dL (74-106); Lipase 48 U/L (12-53); Potassium 5.5 mmol/L (3.5-5.1); Sodium 140 mmol/L (136-145); Total Protein 7.7 g/dL (5.7-8.2)
--- NOTE | 2025-07-10 19:10 | ED.PDOC ---
History of Present Illness HPI Comments This patient is a 69-year-old male who arrives the ED today via EMS due to concerns of elevated potassium levels. Patient states he did blood work yesterday at his primary care provider and was notified that has potassium levels were elevated and that he needed to come to the ED for evaluation. Patient arrives without any complaints of chest pain or pain and general. Patient denies any fever nausea or vomiting. Vital signs were stable. Chief Complaint: Abnormal LAB's Time Seen by MD: 15:41 Primary Care Provider: BLANK Reviewed Notes: Nurses Notes Allergies: Coded Allergies: Metformin (Verified Allergy, Severe, 07/08/23) Home Meds Active Scripts Ibuprofen Micronized (Ibuprofen) 600 Mg Tab, 600 MG PO TID PRN for 14 Days, #42 TAB Prov:RUBI JEROME 07/08/23 Prednisone (Prednisone) 20 Mg Tab, 40 MG PO DAILY for 1 Day, #1 MG Prov:BHARATHI WHEAT MD 04/08/22 Prednisone (Prednisone) 10 Mg Tab, 20 MG PO DAILY for 1 Day, #1 MG Prov:BHARATHI WHEAT MD 04/08/22 Prednisone (Prednisone) 10 Mg Tab, 10 MG PO DAILY for 1 Day, #1 MG Prov:BHARATHI WHEAT MD 04/08/22 Prednisone (Prednisone) 5 Mg Tab, 5 MG PO DAILY for 1 Day, #1 MG Prov:BHARATHI WHEAT MD 04/08/22 Ergocalciferol (VITAMIN D 44137 UNIT) 50,000 [place], [address] UNIT PO QWEEKLY, #7 CAP Prov:BHARATHI WHEAT MD 04/08/22 Furosemide (Lasix) 20 Mg Tb, 1 TAB PO QAM, #90 TAB 1 Refill Prov:BHARATHI WHEAT MD 04/08/22 Reported Medications Cholecalciferol (VITAMIN D-3) 1,000 Unit Tab, 1 TAB PO DAILY, TAB 04/06/22 Glipizide (Glipizide) 10 Mg Tab, 1 TAB PO DAILY, MG 04/06/22 Umeclidinium-Vilanterol (Anoro Ellipta 62.5-25 Mcg/INH) 1 Aer Aer, 1 AER IN DAILY, AER 04/06/22 Famotidine (Famotidine) 20 Mg Tab, 1 TAB PO BID PRN for HEARTBURN, MG 04/06/22 Albuterol Sulfate (Albuterol Sulfate Hfa) 108 Mcg/Act Aer, 2 PUFF IN Q6HP PRN for WHEEZING, AER 04/06/22 Dapagliflozin Propanediol (Farxiga) 10 Mg Tab, 1 TAB PO DAILY 04/04/22 Atorvastatin Calcium (ATORVASTATIN CALCIUM) 20 Mg Tab, 1 TAB PO HS 04/04/22 Carvedilol (Carvedilol) 25 Mg Tab, 1 TAB PO BID 04/04/22 Sitagliptin Phosphate (Januvia) 100 Mg Tab, 1 TAB PO DAILY 04/04/22 Losartan Potassium (Losartan Potassium) 100 Mg Tab, 1 TAB PO HS 04/04/22 Amlodipine Besylate (Amlodipine Besylate) 10 Mg Tab, 1 TAB PO QPM 04/04/22 Information Source: Patient Mode of Arrival: EMS Severity: Moderate Timing: Hours Duration: Since onset Prehospital treatment: None Past Medical History PAST MEDICAL HISTORY: Arthritis, COPD, DM, GERD, HTN Past Medical History (Other): History of hyperkalemia per patient Surgical History: Denies all surgeries Family History Family History: Unobtainable Social History Smoker: Non-Smoker Alcohol: Denies ETOH Use Drugs: Denies Drug Use Lives In: Home Constitutional: denies: chills, diaphoresis, fatigue, fever, malaise, sweats, w eakness, others EENTM: denies: blurred vision, double vision, ear bleeding, ear discharge, ear drainage, ear pain, ear ringing, eye pain, eye redness, hearing loss, mouth pain, mouth swelling, nasal discharge, nose bleeding, nose congestion, nose pain, photophobia, tearing, throat pain, throat swelling, voice changes, others Respiratory: denies: cough, hemoptysis, orthopnea, SOB at rest, shortness of breath, SOB with excertion, stridor, wheezing, others Cardiovascular: denies: chest pain, dizzy spells, diaphoresis, Dyspnea on exertion, edema, irregular heart beat, left arm pain, lightheadedness, palpitations, PND, syncope, others Gastrointestinal: denies: abdomen distended, abdominal pain, blood streaked bowels, constipated, diarrhea, dysphagia, difficulty swallowing, hematemesis, melena, nausea, poor appetite, poor fluid intake, rectal bleeding, rectal pain, vomiting, others Genitourinary: denies: burning, dysuria, flank pain, frequency, hematuria, incontinence, penile discharge, penile sore, pain, testicle pain, testicle swe lling, urgency, others Neurological: denies: dizziness, fainting, headache, left sided numbness, left sided weakness, numbness, paresthesia, pre-existing deficit, right sided numbness, right sided weakness, seizure, speech problems, tingling, tremors, weakness, others Musculoskeletal: denies: back pain, gout, joint pain, joint swelling, muscle pain, muscle stiffness, neck pain, others Integumetry: denies: bruises, change in color, change in hair/nails, dryness, laceration, lesions, lumps, rash, wounds, others Allergic/Immunocompromised: denies: Difficulty Healing, Frequent Infections, Hives, Itching, others Hematologic/Lymphatic: denies: anemia, blood clots, easy bleeding, easy bruising, swollen glands, others Endocrine: denies: excessive hunger, excessive sweating, excessive thirst, excessive urination, flushing, intolerance to cold, intolerance to heat, unexplained weight gain, unexplained weight loss, others Psychiatric: denies: anxiety, bipolar disorder, depression, hopeless, panic disorder, schizophrenia, sleepless, suicidal, others Physical Exam General Appearance: No Apparent Distress (Patient was in no distress at time of evaluation.), Obese HEENT: Normal ENT Inspection, Pharynx Normal, TMs Normal Neck: Full Range of Motion, Non-Tender, Normal, Normal Inspection Respiratory: Chest Non-Tender, Lungs Clear, No Accessory Muscle Use, No Respiratory Distress, Normal Breath Sounds Cardiovascular: No Edema, No JVD, No Murmur, No Gallop, Normal Peripheral Pulses, Regular Rate/Rhythm, Other (Unremarkable cardiac evaluation.) Breast Exam: Deferred Gastrointestinal: No Organomegaly, Non Tender, No Pulsatile Mass, Normal Bowel Sounds, Soft Genitalia: Deferred Pelvic: Deferred Rectal: Deferred Extremities: Normal capillary refill, Normal inspection, No pedal edema Neurologic: Alert Cerebellar Function: NOT DONE Reflexes: NOT DONE Skin: Dry, Normal Color, Warm Lymphatic: No Adenopathy Was a procedure done? Was a procedure done?: No Differential Dx Considerations may include: Hyperkalemia, electrolyte abnormality, sepsis, acute coronary syndrome X-Ray, Labs, Meds, VS Vital Signs Date Time Temp Pulse Resp B/P (MAP) Pulse Ox O2 Delivery O2 Flow Rate FiO2 07/10/25 14:50 81 07/10/25 14:48 98.7 80 20 149/78 99 98.7 Lab Test 07/10/25 17:04 07/10/25 16:08 Range/Units Troponin I High Sensitivity 9 9 </=54 ng/L White Blood Count 8.6 4.4-10.8 10^3/uL Red Blood Count 3.47 L 4.5-5.90 10^6/uL Hemoglobin 11.0 L 13.5-17.5 g/dL Hematocrit 33.0 L 41.0-53.0 % Mean Corpuscular Volume 95.2 80.0-100.0 fL Mean Corpuscular Hemoglobin 31.9 28.0-32.0 pg Mean Corpuscular Hemoglobin Concent 33.5 32.0-36.0 g/dL Red Cell Distribution Width 13.9 11.8-14.3 % Platelet Count 201 140-450 10^3/uL Mean Platelet Volume 8.3 6.9-10.8 fL Neutrophils (%) (Auto) 70.4 37.0-80.0 % Lymphocytes (%) (Auto) 16.9 10.0-50.0 % Monocytes (%) (Auto) 10.8 0.0-12.0 % Eosinophils (%) (Auto) 1.4 0.0-7.0 % Basophils (%) (Auto) 0.5 0.0-2.0 % Neutrophils # (Auto) 6.0 1.6-8.6 10 ^3/uL Lymphocytes # (Auto) 1.4 0.4-5.4 10 ^3/uL Monocytes # (Auto) 0.9 0-1.3 10 ^3/uL Eosinophils # (Auto) 0.1 0-0.8 10 ^3/uL Basophils # (Auto) 0 0-0.2 10 ^3/uL Nucleated Red Blood Cells 0.1 % Sodium Level 140 136-145 mmol/L Potassium Level 5.5 H 3.5-5.1 mmol/L Chloride Level 106 98-107 mmol/L Carbon Dioxide Level 25 20-31 mmol/L Anion Gap 9 5-15 Blood Urea Nitrogen 44 H 9-23 mg/dL Creatinine 1.70 H 0.700-1.30 mg/dL Glomerular Filtration Rate Calc 43 >90 mL/min BUN/Creatinine Ratio 25.9 H 10.0-20.0 Serum Glucose 127 H 74-106 mg/dL Lactic Acid Level 0.8 0.4-2.0 mmol/L Calcium Level 9.1 8.7-10.4 mg/dL Total Bilirubin 0.4 0.2-1.0 mg/dL Aspartate Amino Transferase (AST) 23 13-40 U/L Alanine Aminotransferase (ALT) 40 7-40 U/L Alkaline Phosphatase 134 H 46-116 U/L Total Protein 7.7 5.7-8.2 g/dL Albumin 4.4 3.2-4.8 g/dL Lipase 48 12-53 U/L X-Ray, Labs, Meds, VS Comment All studies performed the ED were evaluated by me personally. Serum studies revealed an anemic state as well as what appears to be acute on chronic renal injuries. Patient's potassium level was 5.5 and troponins were negative for any cardiac concerns. EKG revealed a sinus rhythm with a rate of 81. Right bundle- branch block was noted as well as minimal ST elevations in inferior leads. UT interval of 206 and QT interval of 384. EKG did reveal some peaked T waves in V1, V2 and V3. Patient will be admitted for management of his electrolyte and potassium concerns as well as cardiac evaluation. Time of 1ST Reevaluation: 19:14 Reevaluation 1ST: Unchanged Consultation: PCP, Cardiology Patient Education/Counseling: Diagnosis, Treatment Family Education/Counseling: Diagnosis, Treatment SEPSIS Sepsis Screen Date sepsis recognized/suspect: Jul 10, 2025 Time Sepsis recognized/suspect: 1448 Recent Procedure: No On Antibiotic Therapy: No Respiratory Rate >20: No Heart Rate >90: No Temp<36 C (96.8 F) or >38.3 C: No SBP <90 or MAP <65 mmHG: No New Acute Mental Status Change: No Is the patient on CPAP, BIPAP,: No Physician Orders Electrocardigram (07/10/25 15:53) Continuous Ekg Monitoring 08,12,16,20,00,04 (07/10/25 15:53) Sodium Zirconium Cyclosilicate (Lokelma) (07/10/25 19:15) Vital Signs Date Time Temp Pulse Resp B/P (MAP) Pulse Ox O2 Delivery O2 Flow Rate FiO2 07/10/25 14:50 81 07/10/25 14:48 98.7 80 20 149/78 99 98.7 Laboratory Tests Test 07/10/25 16:08 Lactic Acid Level 0.8 mmol/L (0.4-2.0) White Blood Count 8.6 10^3/uL (4.4-10.8) Departure 1 Departure Time of Disposition: 19:14 Impression: Primary Impression: Hyperkalemia Additional Impressions: [id number] kidney injury Anemia Acute coronary syndrome Disposition: ADMITTED INPATIENT Condition: Stable Discharged With: Self Critical Care Note Critical Care Time?: No Stability Stability form required: No Heart Score Heart Score: Heart Score Response (Comments) Value History Slightly Suspicious 0 EKG Repolarization Disturb 1 Age >65 2 Risk Factors >3 or Hx ASHD 2 Troponin Normal limit 0 Total 5 INDIRA ROBLES PAC Jul 10, 2025 19:10
[2025-07-10] MEDS: SODIUM ZIRCONIUM CYCL 10 GM PAK PO ONE (19:33)
--- NOTE | 2025-07-10 20:55 | DVHHPRES ---
History of Present Illness Resident Creating Document: TRISTA GALO RESIDENT History of Present Illness This is a 69-year-old male with past medical history of Diabetes mellitus, hypertension, COPD, asthma, CKD 3B, post-polio syndrome, LISA on CPAP, presented to the ER with chief complain of dizziness. Dizziness started in the morning, described as lightheadedness, associated with chills. Patient reportedly went for blood workup in the morning, he got a call from his PCP for elevated potassium and was told to visit the ER. Patient denies nausea, vomiting, fever, headache. PMHx: Diabetes mellitus, hypertension, COPD, asthma, CKD 3B, post-polio syndrome, LISA on CPAP Social history: Quit alcohol use 1 year ago, denies smoking and drug use. Lives in house alone, cared by his daughter. Full code, next to kin is daughter Home medication: Atorvastatin, amlodipine, carvedilol, furosemide, glipizide, januvia, kerendia, losartan Allergic history: Metformin Patient was examined at bedside today. Patient is admitted for further evaluation and management. Review of Systems Review of Systems ROS: Constitutional: Denies weight loss, fever and chills. HEENT: Denies changes in vision and hearing. Respiratory: Denies shortness of breath and cough Cardiovascular: Denies chest discomfort or palpitations GI: Denies abdominal pain, nausea, vomiting and diarrhea. : Denies dysuria and urinary frequency. Musculoskeletal: Denies myalgias and joint pain Skin: Denies rash and pruritus. Neurological: Dizziness, denies headache, vision or hearing problems Allergies: Coded Allergies: Metformin (Verified Allergy, Severe, 07/08/23) Exam Vital Signs Vital Signs Date Time Temp Pulse Resp B/P (MAP) Pulse Ox O2 Delivery O2 Flow Rate FiO2 07/10/25 14:50 81 07/10/25 14:48 98.7 20 149/78 99 98.7 Exam General: Patient alert and oriented in person, place and time. Patient following commands. HEENT: Normocephalic, atraumatic, moist mucous membranes Respiratory/pulmonary: Clear lungs bilaterally, vesicular murmurs present in almost all lung larson, no associated crackles or wheezes. Cardiovascular: Normal heart sounds S1 and S2 with no associated murmurs Abdomen: Abdomen nondistended, there is no pain to palpation in any of the abdominal quadrants, no palpable masses. Extremities: Motor strength 3/5 in right upper, lower extremities. Peripheral Pulses: 3+ Radial (R). 3+ Radial (L). 3+ Dorsalis pedis (R). 3+ Dorsalis pedis(L) Skin: No rashes or pruritus, there is no sacral edema present at this time. Neurological: Intact cranial nerves with no focal neurologic deficits Labs/Xrays Labs Test 07/10/25 19:30 07/10/25 17:04 07/10/25 16:08 Range/Units POC Glucose 109 H 70-106 mg/dl Troponin I High Sensitivity 9 </=54 ng/L White Blood Count 8.6 4.4-10.8 10^3/uL Red Blood Count 3.47 L 4.5-5.90 10^6/uL Hemoglobin 11.0 L 13.5-17.5 g/dL Hematocrit 33.0 L 41.0-53.0 % Mean Corpuscular Volume 95.2 80.0-100.0 fL Mean Corpuscular Hemoglobin 31.9 28.0-32.0 pg Mean Corpuscular Hemoglobin Concent 33.5 32.0-36.0 g/dL Red Cell Distribution Width 13.9 11.8-14.3 % Platelet Count 201 140-450 10^3/uL Mean Platelet Volume 8.3 6.9-10.8 fL Neutrophils (%) (Auto) 70.4 37.0-80.0 % Lymphocytes (%) (Auto) 16.9 10.0-50.0 % Monocytes (%) (Auto) 10.8 0.0-12.0 % Eosinophils (%) (Auto) 1.4 0.0-7.0 % Basophils (%) (Auto) 0.5 0.0-2.0 % Neutrophils # (Auto) 6.0 1.6-8.6 10 ^3/uL Lymphocytes # (Auto) 1.4 0.4-5.4 10 ^3/uL Monocytes # (Auto) 0.9 0-1.3 10 ^3/uL Eosinophils # (Auto) 0.1 0-0.8 10 ^3/uL Basophils # (Auto) 0 0-0.2 10 ^3/uL Nucleated Red Blood Cells 0.1 % Sodium Level 140 136-145 mmol/L Potassium Level 5.5 H 3.5-5.1 mmol/L Chloride Level 106 98-107 mmol/L Carbon Dioxide Level 25 20-31 mmol/L Anion Gap 9 5-15 Blood Urea Nitrogen 44 H 9-23 mg/dL Creatinine 1.70 H 0.700-1.30 mg/dL Glomerular Filtration Rate Calc 43 >90 mL/min BUN/Creatinine Ratio 25.9 H 10.0-20.0 Serum Glucose 127 H 74-106 mg/dL Lactic Acid Level 0.8 0.4-2.0 mmol/L Calcium Level 9.1 8.7-10.4 mg/dL Total Bilirubin 0.4 0.2-1.0 mg/dL Aspartate Amino Transferase (AST) 23 13-40 U/L Alanine Aminotransferase (ALT) 40 7-40 U/L Alkaline Phosphatase 134 H 46-116 U/L Total Protein 7.7 5.7-8.2 g/dL Albumin 4.4 3.2-4.8 g/dL Lipase 48 12-53 U/L SEPSIS Sepsis Screen Date sepsis recognized/suspect: Jul 10, 2025 Time Sepsis recognized/suspect: 8 Recent Procedure: No On Antibiotic Therapy: No Respiratory Rate >20: No Heart Rate >90: No Temp<36 C (96.8 F) or >38.3 C: No SBP <90 or MAP <65 mmHG: No New Acute Mental Status Change: No Is the patient on CPAP, BIPAP,: No Physician Orders Electrocardigram (07/10/25 15:53) Continuous Ekg Monitoring 08,12,16,20,00,04 (07/10/25 15:53) Vital Signs Date Time Temp Pulse Resp B/P (MAP) Pulse Ox O2 Delivery O2 Flow Rate FiO2 07/10/25 14:50 81 07/10/25 14:48 98.7 80 20 149/78 99 98.7 Laboratory Tests Test 07/10/25 16:08 Lactic Acid Level 0.8 mmol/L (0.4-2.0) White Blood Count 8.6 10^3/uL (4.4-10.8) Medications Medications Dose Ordered Sig/Juan F Route Start Time Stop Time Status Last Admin Dose Admin Zirconium Oxide 10 gm ONCE ONCE PO 07/10/25 19:15 07/10/25 19:16 DC 07/10/25 19:33 10 GM Assessment/Plan Assessment/Plan Presyncope, rule out cardiac etiology Echocardiogram ordered Orthostatic Vitals ordered Troponins WNL CXR shows no acute cardiopulmonary abnormality Monitor on telemetry for life-threatening arrhythmias Hyperkalemia, resolving Lokelma p.o. given in ER IV Calcium gluconate EKG shows peaked T-waves Monitor potassium levels Telemetry Dietary modifications Holding kerendia, losartan CKD 3B GFR- 44 Strict control of blood pressure, diabetes Discussed avoiding nephrotoxins like NSAIDS, contrast Low salt diet, maintain hydration Repeat BMP Holding furosemide Diabetes mellitus type 2 Sliding scale insulin A1c Monitor blood glucose Hypertension Continue atorvastatin Hypercholesteremia Continue carvedilol, amlodipine, holding off losartan Normocytic, normochromic anemia, unspecified Ordered ferritin, iron panel, folate, haptoglobin, B12 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 Continue CPAP for sleep apnea Hiatal Hernia Seen on Chest Xray. Patient does not complain of any severe symptoms, did not lose any weight. Follow up as outpatient DIET: Cardiac, renal DVT PROPHYLAXIS: Lovenox GI PROPHYLAXIS: Protonix CODE STATUS: Goals of care discussed with patient at bedside for more than 35 minutes. Full code DISPOSITION: Telemetry Patient's status and plan discussed with the patient. Case discussed with Dr. Bloom Plan discussed with: Patient, Daughter, Other (Nurses) Date of Service: Jul 10, 2025 Billing Provider: DENNIS BLOOM MD Common Visit Codes: [id number] INP/OBS CARE (HIGH) Secondary Visit Codes: [id number] CARE PLAN 30 MINUTES TRISTA GALO RESIDENT Jul 10, 2025 20:54 DEE DAMICO RESIDENT Jul 11, 2025 07:52
[2025-07-10 21:24] LABS: Magnesium 2.3 mg/dL (1.6-2.6)
[2025-07-10 21:26] LABS: Cholesterol 114.0 mg/dL (< 200)
[2025-07-10 21:30] LABS: HDL Cholesterol 36.0 mg/dL (40-59); Triglycerides 153.0 mg/dL (< 150)
[2025-07-10] MEDS: CALCIUM GLUC 1,000mg/50ml-NS 50 ML IV ONE (21:45)
[2025-07-10 21:47] LABS: Chloride 106 mmol/L (98-107); Potassium 5.1 mmol/L (3.5-5.1); Sodium 139 mmol/L (136-145)
[2025-07-10 21:48] LABS: Anion Gap 10 (5-15); Carbon Dioxide 23 mmol/L (20-31)
[2025-07-10 21:48] LABS: INR 1.03 (0.9-1.15); Partial Thromboplastin Time 28.8 SEC (24.5-34.5); Prothrombin Time 10.9 sec (9.3-11.8)
[2025-07-10 21:49] LABS: Calcium 9.1 mg/dL (8.7-10.4)
[2025-07-10 21:54] LABS: BUN/Creatinine Ratio 24.0 (10.0-20.0)
[2025-07-10 21:55] LABS: Blood Urea Nitrogen 40 mg/dL (9-23); Glucose 149 mg/dL (74-106)
[2025-07-10] MEDS ORDERED: ACETAMINOPHEN 325 MG TAB PO PRN (22:15)
[2025-07-10] MEDS ORDERED: ONDANSETRON HCL 4 MG/2 ML VIAL IV PRN (22:15)
[2025-07-10] MEDS ORDERED: MORPHINE SULFATE INJ 2 MG/ml SYRG IV PRN (22:15)
[2025-07-10] MEDS ORDERED: DEXTROSE (50%) 50ML SYRG IV PRN (22:15)
--- NOTE | 2025-07-10 22:52 | DVH ---
CHEST RADIOGRAPH Indication: COPD Technique: Single frontal view of the chest was obtained COMPARISON: CT CHEST WITH CONTRAST on DOS: 10/23/23, CT CHEST WITHOUT CONTRAST on DOS: 02/21/23, XY JEREMI ST TWO VIEWS ROUTINE on DOS: 01/22/23, XY CHEST PORTABLE on DOS: 12/16/22, CXRP on DOS: 04/06/22 FINDINGS: Lines and Tubes: None Lungs: Clear. Stable chronic appearing left hemidiaphragmatic elevation and hiatal hernia. Pleura: No effusion. No pneumothorax. Cardiomediastinal contours: Unremarkable Bones: Unremarkable IMPRESSION: 1. No radiographic evidence of acute cardiopulmonary abnormality.
[2025-07-10 23:00] VITALS: O2SAT 96
[2025-07-10] MEDS: SODIUM CHLORIDE 0.9% 1,000 ML IV SCH (23:10)
[2025-07-10] MEDS: FUROSEMIDE 40 MG TAB PO ONE (23:10)
[2025-07-10] MEDS: ENOXAPARIN SOD 40 MG/0.4 ML SYRINGE SC SCH (23:11)
[2025-07-10 23:22] LABS: Iron 100.0 ug/dL (65-175)
[2025-07-10 23:25] LABS: Total Iron Binding Capacity 296.0 ug/dL (250-425)
[2025-07-10 23:29] LABS: Ferritin 232.9 ng/mL (22-322)
[2025-07-11] VITALS (7 sets, daily range): BP systolic 118–148; BP diastolic 64–84; PULSE 77–82; RESP 18; TEMP 97.4–98.6; O2SAT 94–98
[2025-07-11 05:44] LABS: Hematocrit 29.4 % (41.0-53.0); Hemoglobin 10.0 g/dL (13.5-17.5); Mean Corpuscular Hemoglobin 32.5 pg (28.0-32.0); Mean Corpuscular Volume 95.8 fL (80.0-100.0); Nucleated Red Blood Cells % 0.0 %
[2025-07-11 05:57] LABS: Alanine Aminotransferase 32 U/L (7-40); Albumin 4.0 g/dL (3.2-4.8); Alkaline Phosphatase 109 U/L (46-116); Anion Gap 10 (5-15); BUN/Creatinine Ratio 24.1 (10.0-20.0); Calcium 9.0 mg/dL (8.7-10.4); Carbon Dioxide 23 mmol/L (20-31); Potassium 4.8 mmol/L (3.5-5.1); Sodium 141 mmol/L (136-145); Total Protein 7.1 g/dL (5.7-8.2)
[2025-07-11 06:16] LABS: Bilirubin, Total 0.3 mg/dL (0.2-1.0); Blood Urea Nitrogen 39 mg/dL (9-23); Chloride 108 mmol/L (98-107); Glucose 158 mg/dL (74-106)
[2025-07-11] MEDS: PANTOPRAZOLE 40 MG TAB PO SCH (06:21)
[2025-07-11] MEDS: ACCU-CHEK COMFORT CURVE STRIP VI SCH (06:32)
[2025-07-11] MEDS: InsuLIN REG 1unit/0.01ml Soln (100units/ml) SC SCH (06:33)
[2025-07-11] MEDS ORDERED: FUROSEMIDE 40 MG TAB PO SCH (10:00)
[2025-07-11] MEDS: CARVEDILOL 12.5 MG TAB PO SCH (10:13)
--- NOTE | 2025-07-11 13:43 | DVHDS2 ---
Discharge Summary Date of Admission Jul 10, 2025 at 22:09 Date of Discharge: Jul 11, 2025 Admitting Diagnosis hyperkalemia Labs/Diagnostic Data: Laboratory Results Test 07/11/25 11:56 07/11/25 04:49 07/11/25 04:44 07/10/25 21:09 POC Glucose 225 mg/dl (70-106) White Blood Count 8.2 10^3/uL (4.4-10.8) Red Blood Count 3.07 10^6/uL (4.5-5.90) Hemoglobin 10.0 g/dL (13.5-17.5) Hematocrit 29.4 % (41.0-53.0) Mean Corpuscular Volume 95.8 fL (80.0-100.0) Mean Corpuscular Hemoglobin 32.5 pg (28.0-32.0) Mean Corpuscular Hemoglobin Concent 34.0 g/dL (32.0-36.0) Red Cell Distribution Width 13.6 % (11.8-14.3) Platelet Count 165 10^3/uL (140-450) Mean Platelet Volume 8.4 fL (6.9-10.8) Neutrophils (%) (Auto) 65.5 % (37.0-80.0) Lymphocytes (%) (Auto) 22.3 % (10.0-50.0) Monocytes (%) (Auto) 10.9 % (0.0-12.0) Eosinophils (%) (Auto) 0.9 % (0.0-7.0) Basophils (%) (Auto) 0.4 % (0.0-2.0) Neutrophils # (Auto) 5.4 10 ^3/uL (1.6-8.6) Lymphocytes # (Auto) 1.8 10 ^3/uL (0.4-5.4) Monocytes # (Auto) 0.9 10 ^3/uL (0-1.3) Eosinophils # (Auto) 0.1 10 ^3/uL (0-0.8) Basophils # (Auto) 0 10 ^3/uL (0-0.2) Nucleated Red Blood Cells 0.0 % Sodium Level 141 mmol/L (136-145) Potassium Level 4.8 mmol/L (3.5-5.1) Chloride Level 108 mmol/L (98-107) Carbon Dioxide Level 23 mmol/L (20-31) Anion Gap 10 (5-15) Blood Urea Nitrogen 39 mg/dL (9-23) Creatinine 1.62 mg/dL (0.700-1.30) Glomerular Filtration Rate Calc 45 mL/min (>90) BUN/Creatinine Ratio 24.1 (10.0-20.0) Serum Glucose 158 mg/dL (74-106) Calcium Level 9.0 mg/dL (8.7-10.4) Total Bilirubin 0.3 mg/dL (0.2-1.0) Aspartate Amino Transferase (AST) 20 U/L (13-40) Alanine Aminotransferase (ALT) 32 U/L (7-40) Alkaline Phosphatase 109 U/L (46-116) Total Protein 7.1 g/dL (5.7-8.2) Albumin 4.0 g/dL (3.2-4.8) Prothrombin Time 10.9 sec (9.3-11.8) Prothrombin Time INR 1.03 (0.9-1.15) Activated Partial Thromboplast Time 28.8 SEC (24.5-34.5) Test 07/10/25 17:04 07/10/25 16:08 Troponin I High Sensitivity 9 ng/L (</=54) Reticulocyte Count (auto) 1.15 % (0.5-1.5) Hemoglobin A1c 6.6 % A1C (<5.7) Lactic Acid Level 0.8 mmol/L (0.4-2.0) Phosphorus Level 2.7 mg/dL (2.4-5.1) Magnesium Level 2.3 mg/dL (1.6-2.6) Iron Level 100 ug/dL (65-175) Total Iron Binding Capacity 296 ug/dL (250-425) Percent Iron Saturation 33.8 % (20-55) Ferritin 232.9 ng/mL (22-322) C-Reactive Protein High Sensitivity 0.08 mg/dL (<1.0) Triglycerides Level 153 mg/dL (< 150) Cholesterol Level 114 mg/dL (< 200) LDL Cholesterol 59 mg/dL (< 100) HDL Cholesterol 36 mg/dL (40-59) Lipase 48 U/L (12-53) Vitamin B12 Level 330 pg/mL (211-911) Vitamin D 25-Hydroxy 127.1 ng/mL (30.0-100) Thyroid Stimulating Hormone (TSH) 1.31 uIU/mL (0.55-4.78) Other Laboratory Tests 07/11/25 04:49 07/11/25 04:44 Brief Hx & Hospital Course: 69 yo man admitted from ER FOR HYPERKALEMIA. PATIENT TAKES LOSARTAN AND KARENDIA OUTPATIENT. HE WAS SENT IN BY PCP DUE TO THE HIGH POTASSIUM. POTASSIUM CORRECTED. PT IS BEING DISCHARGED HOME. STOP KARENDIA AND LOSARTAN 100 MG. F/U WITH ME /PCP NEXT WEEK Condition at Discharge: Good Final Diagnosis/Problems List HYPERKALEMIA Discharge Disposition: Home Discharge Instruct/Medications Diet: Renal Diet comment: LOW POTASSIUM Activity: No Restrictions, As Tolerated Follow Up/Referral: F/U WITH ME /PCP NEXT WEEK Medications: STOP KARENDIA AND LOSARTAN 100 MG. WILL START LOSARTAN HCT 50/12.5. INCREASE LASIX TO 40 MGDAILY RESUME OTHER HOME MEDS. Scheduled Amlodipine Besylate (Amlodipine Besylate), 1 TAB PO QPM, (Reported) Atorvastatin Calcium (Atorvastatin Calcium), 1 TAB PO HS, (Reported) Carvedilol (Carvedilol), 1 TAB PO BID, (Reported) Cholecalciferol (Vitamin D-3), 1 TAB PO DAILY, (Reported) Dapagliflozin Propanediol (Farxiga), 1 TAB PO DAILY, (Reported) Ergocalciferol (Vitamin D 32350 Unit), 50,000 UNIT PO QWEEKLY Furosemide (Lasix), 1 TAB PO QAM Glipizide (Glipizide), 1 TAB PO DAILY, (Reported) Losartan Potassium (Losartan Potassium), 1 TAB PO HS, (Reported) Prednisone (Prednisone), 5 MG PO DAILY Prednisone (Prednisone), 10 MG PO DAILY Prednisone (Prednisone), 20 MG PO DAILY Prednisone (Prednisone), 40 MG PO DAILY Sitagliptin Phosphate (Januvia), 1 TAB PO DAILY, (Reported) Umeclidinium-Vilanterol (Anoro Ellipta 62.5-25 Mcg/INH), 1 AER IN DAILY, (Reported) Scheduled PRN Albuterol Sulfate (Albuterol Sulfate Hfa), 2 PUFF IN Q6HP PRN for WHEEZING, (Reported) Famotidine (Famotidine), 1 TAB PO BID PRN for HEARTBURN, (Reported) Ibuprofen Micronized (Ibuprofen), 600 MG PO TID PRN Discharge Statement: "Patient was advised to return to the ER or call 911 if any headaches, dizziness, shortness of breath, chest pain, abdominal pain, bleeding, fevers, or worsening of medical condition. Patient was counseled about treatment plan, medications, possible side effects, patientverbalized understanding. All questions were answered to the best of my ability. This discharge took greater then 30 minutes in planning, reviewing documentation, counseling the patient, and discussing with other team members." ASSESSMENT ASSESSMENT Assessment Date of Service: Jul 11, 2025 Billing Provider: ESVIN LAWRENCE MD Common Visit Codes: 28791-XAK/OBS DISCH DAY >30min ESVIN LAWRENCE MD Jul 11, 2025 13:43
[2025-07-11] MEDS ORDERED: LOSA100T33 PO (13:45)
[2025-07-11] MEDS ORDERED: FURO40TA4 PO (13:45)
[2025-07-11] MEDS ORDERED: LOSARTAN POTASSIUM 50 MG TAB PO SCH (20:00)
[2025-07-11] MEDS ORDERED: ATORVASTATIN 20 MG TAB PO SCH (22:00)
--- NOTE | 2025-07-15 09:11 | ECG ---
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
== END 2025-07-11 18:50 | disposition home or self-care (01) | DRG 641 ==
LOC: ER 14:48 → EDBD 14:48 → OVERFLOW 22:09
DX: E87.5 Hyperkalemia (principal); I24.9 Acute ischemic heart disease, unspecified; N17.9 Acute kidney failure, unspecified; D64.9 Anemia, unspecified; E78.00 Pure hypercholesterolemia, unspecified; E66.811 Obesity, class 1; Z68.31 Body mass index [BMI] 31.0-31.9, adult; K44.9 Diaphragmatic hernia without obstruction or gangrene; N18.32 Chronic kidney disease, stage 3b; J44.9 Chronic obstructive pulmonary disease, unspecified; K21.9 Gastro-esophageal reflux disease without esophagitis; E11.22 Type 2 diabetes mellitus with diabetic chronic kidney disease; I12.9 Hypertensive chronic kidney disease with stage 1 through stage 4 chronic kidney disease, or unspecified chronic kidney disease; G47.33 Obstructive sleep apnea (adult) (pediatric); Z79.84 Long term (current) use of oral hypoglycemic drugs; Z79.899 Other long term (current) drug therapy; Z88.8 Allergy status to other drugs, medicaments and biological substances
CPT/HCPCS: 36415; 71045; 80048; 80053; 80061; 82043; 82306; 82570; 82607; 82728; 82746; 82962; 83010; 83036; 83540; 83550; 83605; 83690; 83735; 84100; 84443; 84484; 85025; 85045; 85610; 85730; 86141; 93005; G0378; J1815

== ENCOUNTER → 2025-07-23 | Outpatient (CLI) | payer MEDICARE, MEDICAID ==
[~2025-07-23] MED LIST changes: -FURO1TAB33 PO; +FURO40TA4 PO; -IBUP1TAB5 PO; -LOSA-535 PO; +LOSA100T33 PO
[2025-07-23 11:56] LABS: Potassium 4.7 mmol/L (3.5-5.1)
[2025-07-23 11:57] LABS: Anion Gap 10.0 (5-15); Carbon Dioxide 28.0 mmol/L (20-31)
[2025-07-23 11:58] LABS: Calcium 9.6 mg/dL (8.7-10.4); Urine Protein, UAD Negative (Negative)
[2025-07-23 12:01] LABS: Hematocrit 31.5 % (41.0-53.0); Hemoglobin 10.7 g/dL (13.5-17.5); Mean Corpuscular Hemoglobin 31.9 pg (28.0-32.0); Mean Corpuscular Volume 93.9 fL (80.0-100.0); Nucleated Red Blood Cells % 0.0 %
[2025-07-23 12:03] LABS: BUN/Creatinine Ratio 32.7 (10.0-20.0)
[2025-07-23 12:04] LABS: Albumin 4.4 g/dL (3.2-4.8)
[2025-07-23 12:05] LABS: Blood Urea Nitrogen 70.0 mg/dL (9-23); Chloride 96.0 mmol/L (98-107); Glucose 137.0 mg/dL (74-106); Sodium 134.0 mmol/L (136-145); Uric Acid 11.2 mg/dL (3.7-9.2)
[2025-07-23 13:19] LABS: Protein, Urine 11.5 mg/dL (1-14)
== END | disposition home or self-care (01) ==
LOC: LAB 10:56
PROVIDERS: ATTEND Internal Medicine
DX: E11.22 Type 2 diabetes mellitus with diabetic chronic kidney disease (principal); N18.30 Chronic kidney disease, stage 3 unspecified; E11.21 Type 2 diabetes mellitus with diabetic nephropathy; E21.3 Hyperparathyroidism, unspecified; E55.9 Vitamin D deficiency, unspecified; D63.1 Anemia in chronic kidney disease; N39.0 Urinary tract infection, site not specified; M10.9 Gout, unspecified; R80.9 Proteinuria, unspecified
CPT/HCPCS: 36415; 80069; 81001; 82306; 82570; 83970; 84156; 84550; 85025

== ENCOUNTER 2025-08-30 17:44 | Emergency (ER) | payer MEDICARE, MEDICAID ==
[~2025-08-30] VITALS: Ht 162.6 cm; Wt 81.8 kg
--- NOTE | 2025-08-30 20:04 | ED.PDOC ---
SOB-HPI HPI Comments 70 year-old male, BIB daughter, for chief complaint of cough, throat dryness, and phlegm as of X3 days ago. Patient has a Hx of COPD and Pneumonia. Patient reports typically being on 2L of O2 at home, with SAT at about 97%. There are no further complaints or modifying factors at this time. Patient denies symptoms of dizziness, fever, chills, chest pain, weakness, or fatigue. Chief Complaint: Cough Time Seen by MD: 20:04 Primary Care Provider: BLANK Reviewed notes: Nurses Notes, Medications, Allergies Information Source: Patient, Relative (Child) Mode of Arrival: Wheelchair Severity: Moderate Timing: Days Duration: Since onset Context: At Rest, With Light Exertion, With Heavy Exertion History of: COPD Associated Signs and Symptoms: Cough, Other (throat dryness, phlegm ) Past Medical History PAST MEDICAL HISTORY: Arthritis, COPD, DM, GERD, HTN Surgical History: Denies all surgeries Family History Family History: Unobtainable Social History Smoker: Non-Smoker Alcohol: Denies ETOH Use Drugs: Denies Drug Use Lives In: Home Constitutional: denies: chills, diaphoresis, fatigue, fever, malaise, sweats, weakness, others EENTM: reports: others (throat dryness, phlegm ); denies: blurred vision, double vision, ear bleeding, ear discharge, ear drainage, ear pain, ear ringing, eye pain, eye redness, hearing loss, mouth pain, mouth swelling, nasal discharge, nose bleeding, nose congestion, nose pain, photophobia, tearing, throat pain, throat swelling, voice changes Respiratory: reports: cough; denies: hemoptysis, orthopnea, SOB at rest, shortness of breath, SOB with excertion, stridor, wheezing, others Cardiovascular: denies: chest pain, dizzy spells, diaphoresis, Dyspnea on exertion, edema, irregular heart beat, left arm pain, lightheadedness, palpitations, PND, syncope, others Gastrointestinal: denies: abdomen distended, abdominal pain, blood streaked bowels, constipated, diarrhea, dysphagia, difficulty swallowing, hematemesis, melena, nausea, poor appetite, poor fluid intake, rectal bleeding, rectal pain, vomiting, others Genitourinary: denies: burning, dysuria, flank pain, frequency, hematuria, incontinence, penile discharge, penile sore, pain, testicle pain, testicle swelling, urgency, others Neurological: denies: dizziness, fainting, headache, left sided numbness, left sided weakness, numbness, paresthesia, pre-existing deficit, right sided numbness, right sided weakness, seizure, speech problems, tingling, tremors, weakness, others Musculoskeletal: denies: back pain, gout, joint pain, joint swelling, muscle pain, muscle stiffness, neck pain, others Integumetry: denies: bruises, change in color, change in hair/nails, dryness, laceration, lesions, lumps, rash, wounds, others Allergic/Immunocompromised: denies: Difficulty Healing, Frequent Infections, Hives, Itching, others Hematologic/Lymphatic: denies: anemia, blood clots, easy bleeding, easy bruising, swollen glands, others Endocrine: denies: excessive hunger, excessive sweating, excessive thirst, excessive urination, flushing, intolerance to cold, intolerance to heat, unexplained weight gain, unexplained weight loss, others Psychiatric: denies: anxiety, bipolar disorder, depression, hopeless, panic disorder, schizophrenia, sleepless, suicidal, others All Other Systems: Reviewed and Negative Physical Exam General Appearance: No Apparent Distress, Normal HEENT: Normal ENT Inspection, Pharynx Normal, TMs Normal Neck: Full Range of Motion, Non-Tender Respiratory: Chest Non-Tender, Decreased Breath Sounds, No Accessory Muscle Use, No Respiratory Distress Cardiovascular: No Edema, No JVD, No Murmur, No Gallop, Normal Peripheral Pulses, Regular Rate/Rhythm Breast Exam: Deferred Gastrointestinal: No Organomegaly, Non Tender, No Pulsatile Mass, Normal Bowel Sounds, Soft Genitalia: Deferred Pelvic: Deferred Rectal: Deferred Extremities: No calf tenderness, Normal capillary refill, Normal range of motion, Non-tender, No pedal edema Musculoskeletal : Apperance: Normal Neurologic: Alert, No Motor Deficits, Normal Affect, Normal Mood, No Sensory Deficits Cerebellar Function: Normal Reflexes: NOT DONE Skin: Dry, Normal Color, Warm Lymphatic: No Adenopathy Was a procedure done? Was a procedure done?: No Differential Dx Differential Diagnosis: Anxiety, Asthma, Bronchitis, COPD, Pneumonia, Sinusitis, Pharyngitis X-Ray, Labs, Meds, VS Vital Signs Date Time Temp Pulse Resp B/P (MAP) Pulse Ox O2 Delivery O2 Flow Rate FiO2 11/30/25 22:18 98.3 72 18 145/52 (83) 100 98.3 08/30/25 20:09 Nasal Cannula* 2 28 08/30/25 20:08 98.3 74 18 155/48 (83) 100 98.3 08/30/25 17:49 Nasal Cannula* 3 32 08/30/25 17:46 98.6 70 15 147/82 100 98.6 [place] [id number] Ph: [phone] DIAGNOSTIC IMAGING Diagnostic Imaging Report : [id number] Signed PATIENT: LEVAR QUEZADA ACCT: [id number] UNIT: [id number] : 1955 LOC: ER ROOM / BED: / AGE / SEX: 70 / M ADM STATUS: REG ER SERVICE 10 ORDERING PHYSICIAN: TERRY PEREZ PROCEDURE(s): CXR2 - CHEST TWO VIEWS ROUTINE REASON: sob, copd ORDER NUMBER(s): [id number], ACCESSION NUMBER(s): [id number] CHEST TWO VIEWS REASON FOR EXAM: Shortness of breath, copd COMPARISON: XY CHEST XRAY 1 VIEW on DOS: 07/10/25, CT CHEST WITH CONTRAST on DOS: 10/23/23, CT CHEST WITHOUT CONTRAST on DOS: 02/21/23, XY CHEST TWO VIEWS ROUTINE on DOS: 01/22/23, XY CHEST PORTABLE on DOS: 12/16/22 TECHNIQUE: PA and lateral views of the chest are obtained. FINDINGS: The cardiomediastinal silhouette is within normal limits for size. There is aortic atherosclerosis. There is persistent elevation of the left hemidiaphragm. There is left lower lobe airspace disease that may represent at electasis although pneumonia is not ruled out. There is no significant pleural effusion. IMPRESSION: Left lower lobe airspace disease that may represent atelectasis although pneumonia is not ruled out. Persistent elevation of the left hemidiaphragm. X-Ray, Labs, Meds, VS Comment IMPRESSION: Left lower lobe airspace disease that may represent atelectasis although pneumonia is not ruled out. Persistent elevation of the left hemidiaphragm. Questionable pneumonia, we will treat patient on patient's history and x-ray findings. Script trial of antibiotics. Advised to take medication as prescribed side effects discussed. Advised to rest increase p.o. fluids with electrolytes. Avoid under water activities while with infection. Follow up with your PCP in three days if no improvement. ER return precautions given patient indicates understanding and agrees with discharge plan of care. Images Reviewed?: Images reviewed and evaluated by me Time of 1ST Reevaluation: 20:34 Reevaluation 1ST: Unchanged Time of 2ND Reevaluation: 22:02 Reevaluation 2ND: Improved Patient Education/Counseling: Diagnosis, Treatment Family Education/Counseling: Diagnosis, Treatment SEPSIS Sepsis Screen Date sepsis recognized/suspect: Aug 30, 2025 Time Sepsis recognized/suspect: 1747 Recent Procedure: No On Antibiotic Therapy: No Respiratory Rate >20: No Heart Rate >90: No Temp<36 C (96.8 F) or >38.3 C: No SBP <90 or MAP <65 mmHG: No New Acute Mental Status Change: No Is the patient on CPAP, BIPAP,: No Physician Orders Chest Two Views Routine (08/30/25 20:11) Vital Signs Date Time Temp Pulse Resp B/P (MAP) Pulse Ox O2 Delivery O2 Flow Rate FiO2 08/30/25 22:18 98.3 72 18 145/52 (83) 100 98.3 08/30/25 20:09 Nasal Cannula* 2 28 08/30/25 20:08 98.3 74 18 155/48 (83) 100 98.3 08/30/25 17:49 Nasal Cannula* 3 32 08/30/25 17:46 98.6 70 15 147/82 100 98.6 Departure 1 Departure Time of Disposition: 22:08 Impression: Primary Impression: Lower respiratory infection (e.g., bronchitis, pneumonia, pneumonitis, pulmonitis) Disposition: 01 HOME / SELF CARE / HOMELESS Condition: Stable e-Prescriptions Azithromycin (Azithromycin) 250 Mg Tab 250 MG PO DAILY MDD 500 for 5 Days, #6 TAB 0 Refills 2 TABLETS ORALLY ON DAY ONE, THEN 1 TABLET ORALLY DAILY FOR 4 DAYS Prov: TERRY PEREZ GUERLINE 08/30/25 Discharged With: Relative Critical Care Note Critical Care Time?: No Stability Stability form required: No Heart Score Heart Score: Heart Score Response (Comments) Value History Slightly Suspicious 0 EKG N/A 0 Age >65 2 Risk Factors 1 or 2 risk factors 1 Troponin N/A 0 Total 3 I personally scribed for ER ([email or web address]) on 08/30/25 at 20:04. Electronically submitted by Katja Hay ([email or web address]). I personally scribed for ER ([email or web address]) on 08/30/25 at 20:13. Electronically submitted by Katja Hay ([email or web address]). I personally scribed for ER (EMERGENCY) on 08/30/25 at 21:29. Electronically submitted by Katja Hay ([email or web address]). ER Aug 30, 2025 20:04 TERRY PEREZ LUBRICATION WORKER Aug 30, 2025 22:10
[2025-08-30] MEDS: predniSONE 20 MG TAB PO ONE (20:19)
[2025-08-30] MEDS: AZITHROMYCIN 250 MG TAB PO ONE (20:19)
--- NOTE | 2025-08-30 21:04 | DVH ---
CHEST TWO VIEWS REASON FOR EXAM: Shortness of breath, copd COMPARISON: XY CHEST XRAY 1 VIEW on DOS: 07/10/25, CT CHEST WITH CONTRAST on DOS: 10/23/23, CT CHEST WITHOUT CONTRAST on DOS: 02/21/23, XY CHEST TWO VIEWS ROUTINE on DOS: 01/22/23, XY CHEST PORTABLE on DOS: 12/16/22 TECHNIQUE: PA and lateral views of the chest are obtained. FINDINGS: The cardiomediastinal silhouette is within normal limits for size. There is aortic atherosclerosis. There is persistent elevation of the left hemidiaphragm. There is left lower lobe airspace disease that may represent atelectasis although pneumonia is not ruled out. There is no significant pleural effusion. IMPRESSION: Left lower lobe airspace disease that may represent atelectasis although pneumonia is not ruled out. Persistent elevation of the left hemidiaphragm.
[2025-08-30] MEDS ORDERED: AZIT-43 PO (22:10)
[2025-08-30 22:18] VITALS: BP 145/52; PULSE 72; RESP 18; TEMP 98.3; O2SAT 100
== END 2025-08-30 22:18 | disposition home or self-care (01) ==
LOC: ER 17:44
DX: J22 Unspecified acute lower respiratory infection (principal); J44.0 Chronic obstructive pulmonary disease with (acute) lower respiratory infection; E11.9 Type 2 diabetes mellitus without complications; I10 Essential (primary) hypertension; M19.90 Unspecified osteoarthritis, unspecified site
CPT/HCPCS: 71046; 99283; J7512

== ENCOUNTER 2025-09-05 14:25 | Inpatient (IN) | payer MEDICARE, MEDICAID ==
[~2025-09-05] VITALS: Ht 167.6 cm; Wt 76.0 kg
[~2025-09-05 14:25] MED LIST changes: +AZIT-43 PO
[2025-09-05 15:10] LABS: Hematocrit 28.8 % (41.0-53.0); Hemoglobin 10.5 g/dL (13.5-17.5); Mean Corpuscular Hemoglobin 32.1 pg (28.0-32.0); Mean Corpuscular Volume 88.5 fL (80.0-100.0); Nucleated Red Blood Cells % 0.0 %
[2025-09-05 15:24] LABS: Potassium 3.9 mmol/L (3.5-5.1)
[2025-09-05 15:25] LABS: Anion Gap 11 (5-15); Carbon Dioxide 29 mmol/L (20-31)
[2025-09-05 15:26] LABS: Calcium 9.6 mg/dL (8.7-10.4)
[2025-09-05 15:30] LABS: BUN/Creatinine Ratio 27.9 (10.0-20.0)
[2025-09-05 15:35] LABS: Blood Urea Nitrogen 39 mg/dL (9-23); Chloride 69 mmol/L (98-107); Glucose 141 mg/dL (74-106)
[2025-09-05 15:36] LABS: Sodium 109 mmol/L (136-145)
--- NOTE | 2025-09-05 16:21 | DVH ---
EXAM: XY CHEST PORTABLE HISTORY: sob TECHNIQUE: 1 view of the chest COMPARISON: XY CHEST TWO VIEWS ROUTINE on DOS: 08/30/25 FINDINGS/IMPRESSION: LUNGS: Retrocardiac opacity in the left lung base with known elevation of the left hemidiaphragm. Correlate for underlying atelectasis and/or consolidation MEDIASTINUM: Unremarkable. BONES: No acute osseous abnormality. OTHER: None.
--- NOTE | 2025-09-05 17:31 | ED.PDOC ---
History of Present Illness HPI Comments 70 y/o M is BIBA for c/c of generalized weakness, congestion, cough, and shortness of breath. Per EMS personnel, patient was diagnosed with PNA when evaluated for symptoms x1 weeks ago. Patient, now, reports on not getting any better since. No reported chest pain, fever, chills, or further acute symptoms. Time Seen by : 14:30 Primary Care Provider: BLANK Reviewed Notes: Nurses Notes, Philosophy Instructor Notes, Medications, Allergies Allergies: Coded Allergies: Metformin (Verified Allergy, Severe, 07/08/23) Home Meds Active Scripts Azithromycin (Azithromycin) 250 Mg Tab, 250 MG PO DAILY MDD 500 for 5 Days, #6 TAB 0 Refills 2 TABLETS ORALLY ON DAY ONE, THEN 1 TABLET ORALLY DAILY FOR 4 DAYS Prov:TERRY PEREZ 08/30/25 Furosemide (Furosemide) 40 Mg Tab, 1 TAB PO DAILY, #30 TAB 5 Refills Prov:ESVIN LAWRENCE MD 07/11/25 Losartan Potassium & Hydrochlo (Losartan Potassium/Hydroc) 1 Tab Tab, 1 TAB PO DAILY, #30 TAB 5 Refills Prov:ESVIN LAWRENCE MD 07/11/25 Prednisone (Prednisone) 20 Mg Tab, 40 MG PO DAILY for 1 Day, #1 MG Prov:BHARATHI WHEAT MD 04/08/22 Prednisone (Prednisone) 10 Mg Tab, 20 MG PO DAILY for 1 Day, #1 MG Prov:BHARATHI WHEAT MD 04/08/22 Prednisone (Prednisone) 10 Mg Tab, 10 MG PO DAILY for 1 Day, #1 MG Prov:BHARATHI WHEAT MD 04/08/22 Prednisone (Prednisone) 5 Mg Tab, 5 MG PO DAILY for 1 Day, #1 MG Prov:BHARATHI WHEAT MD 04/08/22 Ergocalciferol (VITAMIN D 31192 UNIT) 50,000 [place], [address] UNIT PO QWEEKLY, #7 CAP Prov:BHAARTHI WHEAT MD 04/08/22 Reported Medications Cholecalciferol (VITAMIN D-3) 1,000 Unit Tab, 1 TAB PO DAILY, TAB 04/06/22 Glipizide (Glipizide) 10 Mg Tab, 1 TAB PO DAILY, MG 04/06/22 Umeclidinium-Vilanterol (Anoro Ellipta 62.5-25 Mcg/INH) 1 Aer Aer, 1 AER IN DAILY, AER 04/06/22 Famotidine (Famotidine) 20 Mg Tab, 1 TAB PO BID PRN for HEARTBURN, MG 04/06/22 Albuterol Sulfate (Albuterol Sulfate Hfa) 108 Mcg/Act Aer, 2 PUFF IN Q6HP PRN for WHEEZING, AER 04/06/22 Dapagliflozin Propanediol (Farxiga) 10 Mg Tab, 1 TAB PO DAILY 04/04/22 Atorvastatin Calcium (ATORVASTATIN CALCIUM) 20 Mg Tab, 1 TAB PO HS 04/04/22 Carvedilol (Carvedilol) 25 Mg Tab, 1 TAB PO BID 04/04/22 Sitagliptin Phosphate (Januvia) 100 Mg Tab, 1 TAB PO DAILY 04/04/22 Amlodipine Besylate (Amlodipine Besylate) 10 Mg Tab, 1 TAB PO QPM 04/04/22 Information Source: Patient, Emergency Med Personnel Mode of Arrival: EMS Severity: Moderate Timing: Weeks Duration: Since onset Prehospital treatment: 12 Lead EKG, Youth Leader Past Medical History PAST MEDICAL HISTORY: Arthritis, COPD, DM, GERD, HTN Past Medical History (Other): PNA Surgical History: Denies all surgeries Family History Family History: Unobtainable Social History Smoker: Non-Smoker Alcohol: Denies ETOH Use Drugs: Denies Drug Use Lives In: Home All Other Systems: Reviewed and Negative (Comprehensive review of systems are negative unless stated in HPI) Physical Exam General Appearance: No Apparent Distress, Normal HEENT: Normal ENT Inspection, Pharynx Normal, TMs Normal Neck: Full Range of Motion, Non-Tender, Normal, Normal Inspection Respiratory: Chest Non-Tender, Lungs Clear, No Accessory Muscle Use, No Respiratory Distress, Normal Breath Sounds Cardiovascular: No Edema, No JVD, No Murmur, No Gallop, Normal Peripheral Pulses, Regular Rate/Rhythm Breast Exam: Deferred Gastrointestinal: No Organomegaly, Non Tender, No Pulsatile Mass, Normal Bowel Sounds, Soft Genitalia: Deferred Pelvic: Deferred Rectal: Deferred Extremities: No calf tenderness, Normal capillary refill, Normal inspection, Normal range of motion, Non-tender, No pedal edema Musculoskeletal : Apperance: Normal Neurologic: Alert, motion picture photographer II-XII nml as Tested, No Motor Deficits, Normal Affect, Normal Mood, No Sensory Deficits Cerebellar Function: Normal Reflexes: Normal Skin: Dry, Normal Color, Warm Lymphatic: No Adenopathy Was a procedure done? Was a procedure done?: No Differential Dx Considerations may include: Acute COPD exacerbation, PNA, URI, viral, Legionnaires' disease, among others X-Ray, Labs, Meds, VS Lab Test 09/05/25 16:09 09/05/25 14:49 Range/Units Troponin I High Sensitivity 15 15 </=54 ng/L White Blood Count 10.9 H 4.4-10.8 10^3/uL Red Blood Count 3.26 L 4.5-5.90 10^6/uL Hemoglobin 10.5 L 13.5-17.5 g/dL Hematocrit 28.8 L 41.0-53.0 % Mean Corpuscular Volume 88.5 80.0-100.0 fL Mean Corpuscular Hemoglobin 32.1 H 28.0-32.0 pg Mean Corpuscular Hemoglobin Concent 36.3 H 32.0-36.0 g/dL Red Cell Distribution Width 12.1 11.8-14.3 % Platelet Count 230 140-450 10^3/uL Mean Platelet Volume 7.2 6.9-10.8 fL Neutrophils (%) (Auto) 87.1 H 37.0-80.0 % Lymphocytes (%) (Auto) 5.9 L 10.0-50.0 % Monocytes (%) (Auto) 6.8 0.0-12.0 % Eosinophils (%) (Auto) 0.1 0.0-7.0 % Basophils (%) (Auto) 0.1 0.0-2.0 % Neutrophils # (Auto) 9.5 H 1.6-8.6 10 ^3/uL Lymphocytes # (Auto) 0.6 0.4-5.4 10 ^3/uL Monocytes # (Auto) 0.7 0-1.3 10 ^3/uL Eosinophils # (Auto) 0 0-0.8 10 ^3/uL Basophils # (Auto) 0 0-0.2 10 ^3/uL Nucleated Red Blood Cells 0.0 % Sodium Level 109 *L 136-145 mmol/L Potassium Level 3.9 3.5-5.1 mmol/L Chloride Level 69 L 98-107 mmol/L Carbon Dioxide Level 29 20-31 mmol/L Anion Gap 11 5-15 Blood Urea Nitrogen 39 H 9-23 mg/dL Creatinine 1.40 H 0.700-1.30 mg/dL Glomerular Filtration Rate Calc 54 >90 mL/min BUN/Creatinine Ratio 27.9 H 10.0-20.0 Serum Glucose 141 H 74-106 mg/dL Lactic Acid Level 1.0 0.4-2.0 mmol/L Calcium Level 9.6 8.7-10.4 mg/dL Legionella pneumophila S1-6 Abs Pending Time of 1ST Reevaluation: 15:00 Reevaluation 1ST: Unchanged Patient Education/Counseling: Diagnosis, Treatment, Other (need for admission ) Family Education/Counseling: No Family Present SEPSIS Sepsis Screen Physician Orders Urinalysis (09/05/25 14:35) Chest Portable (09/05/25 14:35) Blood Culture (09/05/25 14:35) Troponin-I Hs (09/05/25 17:35) Cefepime 2gm/50ml Ns (Maxipime 2gm/50ml) (09/05/25 17:15) Vancomycin 1gm/250ml Kit (09/05/25 17:15) Sodium Chloride 0.9% (09/05/25 17:15) Legionella Pneumophila Abs (09/05/25 17:23) Laboratory Tests Test 09/05/25 14:49 Lactic Acid Level 1.0 mmol/L (0.4-2.0) White Blood Count 10.9 10^3/uL (4.4-10.8) H Departure 1 Departure Time of Disposition: 17:49 (Patient with concern for sepsis likely secondary to pneumonia. Given patient's low sodium level and pneumonia likely we will send a Legionella testing with the patient. We will empirically cover patient with antibiotics and fluids admit patient for further workup) Impression: Primary Impression: Sepsis Additional Impressions: Hyponatremia Pneumonia Disposition: 09 ADMITTED INPATIENT Admit to: ICU Condition: Critical Critical Care Note Critical Care Time?: Yes Critical care comment: Sepsis and hyponatremia Authorized and Performed by: Yaneli Calderon MD Total critical care time: Approximately 38 minutes Due to a high probability of clinically significant, life threatening deterioration, the patient required my highest level of preparedness to intervene emergently and I personally spent this critical care time directly and personally managing the patient. This critical care time included obtaining a history; examining the patient; pulse oximetry; ordering and review of studies; arranging urgent treatment with development of a management plan; evaluation of patient's response to treatment; frequent reassessment; and, discussions with other providers. This critical care time was performed to assess and manage the high probability of imminent, life-threatening deterioration that could result in multi-organ failure. It was exclusive of separately billable procedures and treating other patients and teaching time. Please see my other sections and the rest of the note for further information on patient assessment and treatment. Stability Stability form required: No Heart Score Heart Score: Heart Score Response (Comments) Value History Moderate Suspicious 1 EKG N/A 0 Age >65 2 Risk Factors >3 or Hx ASHD 2 Troponin Normal limit 0 Total 5 I personally scribed for YANELI CALDERON MD ([email or web address]) on 09/05/25 at 17:31. Electronically submitted by Avtar Adams ([email or web address]). YANELI CALDERON MD Sep 05, 2025 17:31
[2025-09-05 17:35] VITALS: O2SAT 100
[2025-09-05] MEDS: SODIUM CHLORIDE 0.9% 1,000 ML IV ONE (19:17)
[2025-09-05] MEDS ORDERED: ONDANSETRON HCL 4 MG/2 ML VIAL IV PRN (20:00)
[2025-09-05] MEDS: SODIUM CHLORIDE 0.9% 1,000 ML IV SCH (20:00)
[2025-09-05] MEDS ORDERED: DOCUSATE SOD 100 MG CAP PO PRN (20:00)
[2025-09-05] MEDS: VANCOMYCIN 1GM/250ML KIT 250 ML IV ONE (20:46)
[2025-09-05] MEDS: SODIUM CHL 3% 500 ML IV ONE (21:33)
[2025-09-05] MEDS: CEFEPIME 2GM/50ML NS 50 ML IV ONE (21:50)
--- NOTE | 2025-09-05 22:03 | DVHHP2 ---
History of Present Illness Reason for Visit: Hyponatremia History of Present Illness The patient is a 70-year-old male with past medical history of COPD, GERD, diabetes mellitus, arthritis, pneumonia, and hypertension who presented to [facility] ED with complaint of generalized weakness. As reported by daughter, patient has been experiencing generalized weakness associated with congestion, cough, and shortness of breaths. Daughter reports that she had respiratory failure in the past with tracheostomy which has been resolved. Patient was seen and evaluated in the ED, laboratory data shows WBC 10.9, hemoglobin 10.5, hematocrit 28.8, platelets 230, sodium 109, potassium 3.9, BUN 39, creatinine 1.40, GFR 54, glucose 141, calcium 9.6, lactic acid 1.0, troponin 15, blood pressure 152/79, heart rate 75, temperature 95.6 F, O2 saturation 99% on oxygen. Chest x-ray revealing retrocardiac opacity in the left lung base with known elevation of the left hemidiaphragm, correlate for underlying atelectasis and/or consolidation. Patient was started on IV 3% sodium chloride, please see medication orders section in the computer. On my assessment, daughter at bedside, patient denied chest pain, no headache, dizziness, diaphoresis, shortness of breaths, no diarrhea, nausea, vomiting, fever, no chills. Patient was admitted for further evaluation and medical management. Past Medical History Arthritis, COPD, DM, GERD, HTN, PNA Past Surgical History Tracheostomy Family History Reviewed, noncontributory to the management of this case. Past Social History The patient lives at home, denies smoking, alcohol or illicit drugs abuse. Review of Systems Constitutional: Yes: Weakness; No: Fever, Chills, Sweats, Malaise, Other Eyes: No: Pain, Vision change, Conjunctivae inflammation, Eyelid inflammation, Other, Redness ENT: No: Ear pain, Ear discharge, Nose pain, Nose discharge, Nose congestion, Mouth pain, Mouth swelling, Throat pain, Throat swelling, Other Respiratory: Cough, Shortness of breath; No: Dry, SOB with excertion, Wheezing, Hemoptysis, Pleuritic Pain, Sputum, Wheezing, Other Cardiovascular: Other (Congestion); No: Chest Pain, Palpitations, Orthopnea, Paroxysmal Noc. Dyspnea, Edema, Lt Headedness Gastrointestinal: No: Nausea, Vomiting, Abdominal Pain, Diarrhea, Constipation, Melena, Hematochezia, Other Genitourinary: No Dysuria, No Frequency, No Incontinence, No Hematuria, No Retention, No Other Musculoskeletal: No: other, neck pain, shoulder pain, arm pain, back pain, hand pain, leg pain, foot pain Skin: No: Rash, Lesions, Jaundice, Bruising, Other Neurological: No: Weakness, Numbness, Incoordination, Change in speech, Confusion, Seizures, Other Allergies: Coded Allergies: Metformin (Verified Allergy, Severe, 07/08/23) Medications Current Medications Medications Dose Ordered Sig/Juan F Route Start Time Stop Time Status Last Admin Dose Admin Atorvastatin Calcium 20 mg HS PO 09/05/25 22:00 Amlodipine Besylate 5 mg DAILY PO 09/06/25 10:00 Carvedilol 12.5 mg Q12HR PO 09/05/25 22:00 Clonidine HCl 0.1 mg Q4HP PRN PO 09/05/25 20:00 Famotidine 20 mg DAILY IV 09/06/25 10:00 Ceftriaxone Sodium 50 ml @ 100 mls/hr DAILY@09 IV 09/06/25 09:00 Azithromycin 250 ml @ 125 mls/hr DAILY IV 09/06/25 10:00 Diagnostic Test (Pha) 1 strip ACHS 09/05/25 22:00 Insulin Human Regular ACHS SC 09/05/25 22:00 Dextrose 50 ml UD PRN IV 09/05/25 20:00 Sodium Chloride 1,000 ml @ 60 mls/hr [id number] IV 09/05/25 20:00 Acetaminophen/ Hydrocodone Bitart 1 tab Q4HP PRN PO 09/05/25 20:00 Ondansetron HCl 4 mg Q4HP PRN IV 09/05/25 20:00 Docusate Sodium 100 mg BIDPRN PRN PO 09/05/25 20:00 Acetaminophen 650 mg Q6HP PRN PO 09/05/25 20:00 Exam Vital Signs Vital Signs Date Time Temp Pulse Resp B/P (MAP) Pulse Ox O2 Delivery O2 Flow Rate FiO2 09/05/25 19:30 Nasal Cannula* 2 28 09/05/25 19:30 98.8 82 22 131/69 (89) 100 98.8 General Appearance: Alert, Cooperative, No acute distress, Other (Oriented x2) HEENT: Atraumatic, PERRLA, EOMI, Mucous membr. moist/pink Respiratory: Normal air movement, Other (Diminished breath sounds) Cardiovascular: Regular rate, Normal S1, Normal S2, No murmurs Abdominal: Normal bowel sounds, Soft, No tenderness, No hepatospenomegaly, No masses Extremities: No clubbing, No cyanosis, No edema, Normal pulses, No tenderness/swelling Skin: No rashes, No significant lesion Neuro: Normal speech, Normal tone, Sensation intact, Cranial nerves 3-12 NL, Reflexes 2+, Other (Generalized weakness) Psych/Mental Status: Mental status NL, Mood NL Labs/Xrays Labs Test 09/05/25 18:53 09/05/25 14:49 Range/Units Troponin I High Sensitivity 18 </=54 ng/L White Blood Count 10.9 H 4.4-10.8 10^3/uL Red Blood Count 3.26 L 4.5-5.90 10^6/uL Hemoglobin 10.5 L 13.5-17.5 g/dL Hematocrit 28.8 L 41.0-53.0 % Mean Corpuscular Volume 88.5 80.0-100.0 fL Mean Corpuscular Hemoglobin 32.1 H 28.0-32.0 pg Mean Corpuscular Hemoglobin Concent 36.3 H 32.0-36.0 g/dL Red Cell Distribution Width 12.1 11.8-14.3 % Platelet Count 230 140-450 10^3/uL Mean Platelet Volume 7.2 6.9-10.8 fL Neutrophils (%) (Auto) 87.1 H 37.0-80.0 % Lymphocytes (%) (Auto) 5.9 L 10.0-50.0 % Monocytes (%) (Auto) 6.8 0.0-12.0 % Eosinophils (%) (Auto) 0.1 0.0-7.0 % Basophils (%) (Auto) 0.1 0.0-2.0 % Neutrophils # (Auto) 9.5 H 1.6-8.6 10 ^3/uL Lymphocytes # (Auto) 0.6 0.4-5.4 10 ^3/uL Monocytes # (Auto) 0.7 0-1.3 10 ^3/uL Eosinophils # (Auto) 0 0-0.8 10 ^3/uL Basophils # (Auto) 0 0-0.2 10 ^3/uL Nucleated Red Blood Cells 0.0 % Sodium Level 109 *L 136-145 mmol/L Potassium Level 3.9 3.5-5.1 mmol/L Chloride Level 69 L 98-107 mmol/L Carbon Dioxide Level 29 20-31 mmol/L Anion Gap 11 5-15 Blood Urea Nitrogen 39 H 9-23 mg/dL Creatinine 1.40 H 0.700-1.30 mg/dL Glomerular Filtration Rate Calc 54 >90 mL/min BUN/Creatinine Ratio 27.9 H 10.0-20.0 Serum Glucose 141 H 74-106 mg/dL Lactic Acid Level 1.0 0.4-2.0 mmol/L Calcium Level 9.6 8.7-10.4 mg/dL PATIENT: LEVAR QUEZADA ACCT: [id number] UNIT: [id number] : 1955 LOC: ER ROOM / BED: / AGE / SEX: 70 / M ADM STATUS: REG ER SERVICE 1435 ORDERING PHYSICIAN: YANELI CALDERON MD PROCEDURE(s): CXRP - CHEST PORTABLE REASON: sob ORDER NUMBER(s): [id number], ACCESSION NUMBER(s): [id number] EXAM: XY CHEST PORTABLE HISTORY: sob TECHNIQUE: 1 view of the chest COMPARISON: XY CHEST TWO VIEWS ROUTINE on DOS: 08/30/25 FINDINGS/IMPRESSION: LUNGS: Retrocardiac opacity in the left lung base with known elevation of the left hemidiaphragm. Correlate for underlying atelectasis and/or consolidation MEDIASTINUM: Unremarkable. BONES: No acute osseous abnormality. SEPSIS Sepsis Screen Date sepsis recognized/suspect: Sep 05, 2025 Time Sepsis recognized/suspect: 1929 Recent Procedure: No On Antibiotic Therapy: Yes Respiratory Rate >20: No Heart Rate >90: No Temp<36 C (96.8 F) or >38.3 C: No SBP <90 or MAP <65 mmHG: No New Acute Mental Status Change: No Is the patient on CPAP, BIPAP,: No Physician Orders Urinalysis (09/05/25 14:35) Chest Portable (09/05/25 14:35) Blood Culture (09/05/25 14:35) Legionella Pneumophila Abs (09/05/25 17:23) Electrocardigram (09/05/25 19:07) Atorvastatin (Lipitor) (09/05/25 22:00) Amlodipine Tablet (Norvasc Tablet) (09/06/25 10:00) Carvedilol Tablet (Coreg Tablet) (09/05/25 22:00) Clonidine Hcl Tablet (Catapres Tablet) (09/05/25 20:00) Famotidine Injection (Pepcid Injection) (09/06/25 10:00) Ceftriaxone 1gm/50ml (Rocephin) (09/06/25 09:00) Azithromycin 500mg/250ml (Zithromax 500m (09/06/25 10:00) Sodium Chl 3% (09/05/25 20:00) *[facility] (09/05/25 19:49) [facility]Diabetes (09/06/25 Breakfast) Glucose Blood (Accu-Chek Comfort Curve T (09/05/25 22:00) Insulin R (Human) (Insulin R) (09/05/25 22:00) Dextrose 50% Syringe (09/05/25 20:00) Allergies (09/05/25 19:49) Code Status (09/05/25 19:49) Sodium Chloride 0.9% (09/05/25 20:00) Ondansetron Hcl (Zofran) (09/05/25 20:00) Docusate Sodium Capsule (Colace Capsule) (09/05/25 20:00) Fall Risk Precautions In Place QSHIFT (09/05/25 19:49) Complete Blood Count (09/06/25 04:00) Comprehensive Metabolic Panel (09/06/25 04:00) Condition: Serious (09/05/25 19:49) Acetaminophen Tablet (Tylenol Tablet) (09/05/25 20:00) Maintain Bed Rest (09/05/25 19:49) Sequential Compression Device (09/05/25 ) Oxygen Per Hour (09/05/25 19:49) Hydrocodone-Acet 5/325mg Tab ([place] 5/32 (09/05/25 20:00) Vital Signs Date Time Temp Pulse Resp B/P (MAP) Pulse Ox O2 Delivery O2 Flow Rate FiO2 09/05/25 19:30 Nasal Cannula* 2 28 09/05/25 19:30 98.8 82 22 131/69 (89) 100 98.8 09/05/25 19:22 97.5 75 26 152/79 99 97.5 09/05/25 17:35 100 Nasal Cannula* 3 32 09/05/25 17:35 98.0 77 16 149/78 (101) 100 98.0 09/05/25 14:30 77 Laboratory Tests Test 09/05/25 14:49 Lactic Acid Level 1.0 mmol/L (0.4-2.0) White Blood Count 10.9 10^3/uL (4.4-10.8) H Medications Medications Dose Ordered Sig/Juan F Route Start Time Stop Time Status Last Admin Dose Admin Cefepime HCl 50 ml @ 12.5 mls/hr ONCE ONCE IV 09/05/25 17:15 09/05/25 21:14 DC 09/05/25 21:50 12.5 MLS/HR Sodium Chloride 500 ml @ 30 mls/hr ONCE ONCE IV 09/05/25 20:00 09/06/25 12:39 09/05/25 21:33 30 MLS/HR Sodium Chloride 1,000 ml @ 1,000 mls/hr Q1H ONCE IV 09/05/25 17:15 09/05/25 19:02 DC 09/05/25 19:17 1,000 MLS/HR Vancomycin HCl 250 ml @ 250 mls/hr ONCE ONCE IV 09/05/25 17:15 09/05/25 19:39 DC 09/05/25 20:46 250 MLS/HR Assessment/Plan Assessment/Plan Hyponatremia Acute renal injury Pneumonia, unspecified organism Generalized weakness Plan 1. Admit to step-down unit 2. Breathing treatment 3. Pain control management 4. IV antibiotic management 5. Management of fluids and electrolytes 6. Consultation for Nephrology/hospitalist 7. Diagnostic test chest x-ray 8. DVT prophylaxis-on SCDs 9. Repeat labs CBC, CMP in a.m. 10. Home medication reviewed and reconciled 11. Continue with current medical management 12. Treatment plan discussed with patient and RN. Patient verbalized understanding. Plan discussed with: Patient, Other (RN) My Orders Orders - NINA MILLER DNP Procedure Category Date Status Time Atorvastatin (Lipitor) PHA 09/05/25 In Process 22:00 Amlodipine Tablet PHA 09/06/25 In Process (Norvasc Tablet) 10:00 Carvedilol Tablet PHA 09/05/25 In Process (Coreg Tablet) 22:00 Clonidine Hcl Tablet PHA 09/05/25 In Process (Catapres Tablet) 20:00 Famotidine Injection PHA 09/06/25 In Process (Pepcid Injection) 10:00 Ceftriaxone 1gm/50ml PHA 09/06/25 In Process (Rocephin) 09:00 Azithromycin PHA 09/06/25 In Process 500mg/250ml 10:00 Sodium Chl 3% PHA 09/05/25 In Process 20:00 *[facility] CONS 09/05/25 Transmitted -[place] 19:49 Consistent DIET 09/06/25 Transmitted Carb(Ccho)Diabetes Breakfast Glucose Blood PHA 09/05/25 In Process (Accu-Chek Comfort 22:00 Insulin R (Human) PHA 09/05/25 In Process (Insulin R) 22:00 Dextrose 50% Syringe PHA 09/05/25 In Process 20:00 Allergies KEZIA 09/05/25 In Process 19:49 Code Status CODE 09/05/25 Transmitted 19:49 Sodium Chloride 0.9% PHA 09/05/25 In Process 20:00 Ondansetron Hcl PHA 09/05/25 In Process (Zofran) 20:00 Docusate Sodium PHA 09/05/25 In Process Capsule (Colace 20:00 Fall Risk Precautions KEZIA 09/05/[address] 19:49 Complete Blood Count LAB 09/06/25 Verified 04:00 Comprehensive LAB 09/06/25 Verified Metabolic Panel 04:00 Condition: Serious KEZIA 09/05/25 In Process 19:49 Acetaminophen Tablet PHA 09/05/25 In Process (Tylenol Tablet) 20:00 Maintain Bed Rest KEZIA 09/05/25 In Process 19:49 Sequential KEZIA 09/05/25 In Process Compression Device Oxygen Per Hour RT 09/05/25 Verified 19:49 Hydrocodone-Acet PHA 09/05/25 In Process 5/325mg Tab ([place] 20:00 Problem List: (1) Hyponatremia (2) Acute renal injury (3) Pneumonia, unspecified organism (4) Generalized weakness Date of Service: Sep 05, 2025 Billing Provider: NINA MILLER DNP Common Visit Codes: [id number] INP/OBS CARE (HIGH) NINA MILLER DNP Sep 05, 2025 22:03
[2025-09-05] MEDS ORDERED: NITROGLYCERIN 0.4 MG SL TAB SL PRN (22:15)
[2025-09-05] MEDS ORDERED: MORPHINE SULFATE INJ 2 MG/ml SYRG IV PRN (22:15)
[2025-09-05 23:00] VITALS: O2SAT 100
[2025-09-05] MEDS: ATORVASTATIN 20 MG TAB PO SCH (23:20)
[2025-09-05] MEDS: ACETAMINOPHEN 325 MG TAB PO PRN (23:24)
[2025-09-05] MEDS: CARVEDILOL 12.5 MG TAB PO SCH (23:40)
[2025-09-05] MEDS: ACCU-CHEK COMFORT CURVE STRIP VI SCH (23:40)
[2025-09-05] MEDS: InsuLIN REG 1unit/0.01ml Soln (100units/ml) SC SCH (23:40)
[2025-09-06 03:04] LABS: Hematocrit 26.5 % (41.0-53.0); Hemoglobin 9.3 g/dL (13.5-17.5); Mean Corpuscular Hemoglobin 31.6 pg (28.0-32.0); Mean Corpuscular Volume 89.6 fL (80.0-100.0); Nucleated Red Blood Cells % 0.0 %
[2025-09-06 03:20] LABS: Albumin 3.7 g/dL (3.2-4.8); Alkaline Phosphatase 92 U/L (46-116); Anion Gap 11 (5-15); BUN/Creatinine Ratio 29.2 (10.0-20.0); Calcium 8.8 mg/dL (8.7-10.4); Carbon Dioxide 27 mmol/L (20-31); Total Protein 6.5 g/dL (5.7-8.2)
[2025-09-06 03:21] LABS: Bilirubin, Total 0.8 mg/dL (0.2-1.0)
[2025-09-06 03:22] LABS: Alanine Aminotransferase 45 U/L (7-40); Blood Urea Nitrogen 33 mg/dL (9-23); Chloride 77 mmol/L (98-107); Glucose 153 mg/dL (74-106); Potassium 3.3 mmol/L (3.5-5.1)
[2025-09-06 03:24] LABS: Sodium 115 mmol/L (136-145)
[2025-09-06 03:35] VITALS: PULSE 71; RESP 20; O2SAT 100
[2025-09-06 03:45] LABS: Urine Protein, UAD Negative (Negative)
[2025-09-06 07:12] VITALS: PULSE 69; RESP 16; O2SAT 92
[2025-09-06 07:21] VITALS: BP 114/59; PULSE 70; RESP 20; TEMP 97.9; O2SAT 100
[2025-09-06] MEDS: FAMOTIDINE (10MG/ML) 2ML VL IV SCH (10:16)
--- NOTE | 2025-09-06 11:01 | DVHINCON2 ---
Date of service: Sep 06, 2025 Referring Physician Theo Corona, nurse practitioner Reason for Consultation Hyponatremia History of Present Illness Patient is 70-year-old male with past medical history of Arthritis, COPD, pneumonia, DM, GERD, and HTN who was recently diagnosed with pneumonia is admitted for generalized weakness cough and shortness of breath. On admission patient found to have low serum sodium of 109, elevated BUN creatinine. Patient received 3% sodium chloride in the ER. Nephrology is consulted for Acute kidney injury acute kidney injury and to help with the management of hyponatremia Past Medical History PAST MEDICAL HISTORY: Arthritis, COPD, DM, GERD, HTN , PNA Past Surgical History Surgical History: Denies all surgeries Allergies: Coded Allergies: Metformin (Verified Allergy, Severe, 07/08/23) Home Meds Active Scripts Azithromycin (Azithromycin) 250 Mg Tab, 250 MG PO DAILY MDD 500 for 5 Days, #6 TAB 0 Refills 2 TABLETS ORALLY ON DAY ONE, THEN 1 TABLET ORALLY DAILY FOR 4 DAYS Prov:TERRY PEREZ 08/30/25 Furosemide (Furosemide) 40 Mg Tab, 1 TAB PO DAILY, #30 TAB 5 Refills Prov:ESVIN LAWRENCE MD 07/11/25 Losartan Potassium & Hydrochlo (Losartan Potassium/Hydroc) 1 Tab Tab, 1 TAB PO DAILY, #30 TAB 5 Refills Prov:ESVIN LAWRENCE MD 07/11/25 Prednisone (Prednisone) 20 Mg Tab, 40 MG PO DAILY for 1 Day, #1 MG Prov:BHARATHI WHEAT MD 04/08/22 Prednisone (Prednisone) 10 Mg Tab, 20 MG PO DAILY for 1 Day, #1 MG Prov:BHARATHI WHEAT MD 04/08/22 Prednisone (Prednisone) 10 Mg Tab, 10 MG PO DAILY for 1 Day, #1 MG Prov:BHARATHI WHEAT MD 04/08/22 Prednisone (Prednisone) 5 Mg Tab, 5 MG PO DAILY for 1 Day, #1 MG Prov:BHARATHI WHEAT MD 04/08/22 Ergocalciferol (VITAMIN D 26147 UNIT) 50,000 [place], [address] UNIT PO QWEEKLY, #7 CAP Prov:BHARATHI WHEAT MD 04/08/22 Reported Medications Cholecalciferol (VITAMIN D-3) 1,000 Unit Tab, 1 TAB PO DAILY, TAB 04/06/22 Glipizide (Glipizide) 10 Mg Tab, 1 TAB PO DAILY, MG 04/06/22 Umeclidinium-Vilanterol (Anoro Ellipta 62.5-25 Mcg/INH) 1 Aer Aer, 1 AER IN DAILY, AER 04/06/22 Famotidine (Famotidine) 20 Mg Tab, 1 TAB PO BID PRN for HEARTBURN, MG 04/06/22 Albuterol Sulfate (Albuterol Sulfate Hfa) 108 Mcg/Act Aer, 2 PUFF IN Q6HP PRN for WHEEZING, AER 04/06/22 Dapagliflozin Propanediol (Farxiga) 10 Mg Tab, 1 TAB PO DAILY 04/04/22 Atorvastatin Calcium (ATORVASTATIN CALCIUM) 20 Mg Tab, 1 TAB PO HS 04/04/22 Carvedilol (Carvedilol) 25 Mg Tab, 1 TAB PO BID 04/04/22 Sitagliptin Phosphate (Januvia) 100 Mg Tab, 1 TAB PO DAILY 04/04/22 Amlodipine Besylate (Amlodipine Besylate) 10 Mg Tab, 1 TAB PO QPM 04/04/22 Current Medications Current Medications Medications (Trade) Dose Ordered Sig/Juan F Route PRN Reason Start Time Stop Time Status Last Admin Atorvastatin Calcium (Lipitor) 20 mg HS PO 09/05/25 22:00 09/05/25 23:20 Amlodipine Besylate (Norvasc Tablet) 5 mg DAILY PO 09/06/25 10:00 Carvedilol (Coreg Tablet) 12.5 mg Q12HR PO 09/05/25 22:00 Clonidine HCl (Catapres Tablet) 0.1 mg Q4HP PRN PO SBP>150 09/05/25 20:00 Famotidine (Pepcid Injection) 20 mg DAILY IV 09/06/25 10:00 09/06/25 10:16 Ceftriaxone Sodium 50 ml @ 100 mls/hr DAILY@09 IV 09/06/25 09:00 09/06/25 09:17 Azithromycin 250 ml @ 125 mls/hr DAILY IV 09/06/25 10:00 09/06/25 11:40 Diagnostic Test (Pha) (Accu-Chek Comfort Curve T) 1 strip ACHS 09/05/25 22:00 09/06/25 11:35 Insulin Human Regular (InsuLIN R) ACHS SC 09/05/25 22:00 09/06/25 11:35 Dextrose 50 ml UD PRN IV Blood Sugar LESS THAN 60 09/05/25 20:00 Sodium Chloride 1,000 ml @ 60 mls/hr [id number] IV 09/05/25 20:00 09/06/25 12:05 DC 09/05/25 20:00 Acetaminophen/ Hydrocodone Bitart ([place] 5/325MG Tab) 1 tab Q4HP PRN PO MODERATE PAIN (4-6 PAIN SCALE) 09/05/25 20:00 Ondansetron HCl (Zofran) 4 mg Q4HP PRN IV NAUSEA / VOMITING 09/05/25 20:00 Docusate Sodium (Colace Capsule) 100 mg BIDPRN PRN PO FOR CONSTIPATION 09/05/25 20:00 Acetaminophen (Tylenol Tablet) 650 mg Q6HP PRN PO PAIN SCALE 1-3 OR TEMP>100.4 09/05/25 20:00 09/05/25 23:24 Nitroglycerin (Ntrostat Sublingual) 0.4 mg Q5MINP PRN SL FOR CHEST PAIN 09/05/25 22:15 Morphine Sulfate 2 mg Q30M PRN IV FOR CHEST PAIN 09/05/25 22:15 Dextrose 1,000 ml @ 80 mls/hr [id number] IV 09/06/25 12:15 UNV Family History: Alcoholism Cancer Cancer of colon Family history: Asthma Family history: Cardiovascular disease Family history: Depression (situation) Family history: Diabetes mellitus Family history: Hypercholesterolemia (situation) Review of Systems All 12 item review of systems reviewed with the patient nonsignificant except what is mentioned in the history of present illness Patient admits to excessive water intake H&P Exam Vital Signs/I&O Vital Sign Date Time Temp Pulse Resp B/P (MAP) Pulse Ox O2 Delivery O2 Flow Rate FiO2 09/06/25 10:00 86 121/51 09/06/25 07:21 97.9 20 100 3.0 32 97.9 09/06/25 07:12 Nasal Cannula* Intake and Output 09/05/25 09/06/25 19:00 07:00 Intake Total 270 ml Balance 270 ml Intake IV Total 270 ml Physical Exam Patient is awake alert, O2 nasal cannula lungs clear to auscultation bilaterally Cardiac exam regular rate and rhythm GI Soft nontender normal extremities No clubbing cyanosis or edema neuro nonfocal Labs/Diagnostic Data Labs/Diagnostic Data Laboratory Tests Test 09/06/25 11:26 09/06/25 10:16 09/06/25 06:31 09/06/25 03:25 Range/Units POC Glucose 213 H 103 70-106 mg/dl Sodium Level 121 L 136-145 mmol/L Potassium Level 3.5 3.5-5.1 mmol/L Chloride Level 84 L 98-107 mmol/L Carbon Dioxide Level 26 20-31 mmol/L Anion Gap 11 5-15 Blood Urea Nitrogen 32 H 9-23 mg/dL Creatinine 1.17 0.700-1.30 mg/dL Glomerular Filtration Rate Calc 67 >90 mL/min BUN/Creatinine Ratio 27.4 H 10.0-20.0 Serum Glucose 152 H 74-106 mg/dL Calcium Level 9.1 8.7-10.4 mg/dL Total Bilirubin 0.7 0.2-1.0 mg/dL Aspartate Amino Transferase (AST) 92 H 13-40 U/L Alanine Aminotransferase (ALT) 47 H 7-40 U/L Alkaline Phosphatase 98 46-116 U/L Total Protein 7.0 5.7-8.2 g/dL Albumin 4.0 3.2-4.8 g/dL Urine Color Colorless Yellow Urine Clarity Clear Clear Urine pH 5.5 5.0-9.0 Urine Specific [place] 1.007 1.001-1.035 Urine Protein Negative Negative Urine Ketones Trace Negative Urine Blood Trace H Negative /uL Urine Nitrite Negative Negative Urine Bilirubin Negative Negative Urine Urobilinogen Normal Negative mg/dL Urine Leukocyte Esterase Negative Negative /uL Urine RBC <1 0 - 3 /hpf Urine Microscopic WBC < 1 0-3 /HPF Urine Squamous Epithelial Cells None seen <5 /hpf Urine Bacteria None seen None Seen /hpf Urine Glucose 4+ H Normal mg/dL Test 09/06/25 02:25 09/05/25 23:35 09/05/25 18:53 09/05/25 16:09 Range/Units White Blood Count 11.9 H 4.4-10.8 10^3/uL Red Blood Count 2.95 L 4.5-5.90 10^6/uL Hemoglobin 9.3 L 13.5-17.5 g/dL Hematocrit 26.5 L 41.0-53.0 % Mean Corpuscular Volume 89.6 80.0-100.0 fL Mean Corpuscular Hemoglobin 31.6 28.0-32.0 pg Mean Corpuscular Hemoglobin Concent 35.3 32.0-36.0 g/dL Red Cell Distribution Width 12.2 11.8-14.3 % Platelet Count 207 140-450 10^3/uL Mean Platelet Volume 6.9 6.9-10.8 fL Neutrophils (%) (Auto) 87.7 H 37.0-80.0 % Lymphocytes (%) (Auto) 5.4 L 10.0-50.0 % Monocytes (%) (Auto) 6.5 0.0-12.0 % Eosinophils (%) (Auto) 0.3 0.0-7.0 % Basophils (%) (Auto) 0.1 0.0-2.0 % Neutrophils # (Auto) 10.4 H 1.6-8.6 10 ^3/uL Lymphocytes # (Auto) 0.6 0.4-5.4 10 ^3/uL Monocytes # (Auto) 0.8 0-1.3 10 ^3/uL Eosinophils # (Auto) 0 0-0.8 10 ^3/uL Basophils # (Auto) 0 0-0.2 10 ^3/uL Nucleated Red Blood Cells 0.0 % Sodium Level 115 #*L 136-145 mmol/L Potassium Level 3.3 L 3.5-5.1 mmol/L Chloride Level 77 L 98-107 mmol/L Carbon Dioxide Level 27 20-31 mmol/L Anion Gap 11 5-15 Blood Urea Nitrogen 33 H 9-23 mg/dL Creatinine 1.13 0.700-1.30 mg/dL Glomerular Filtration Rate Calc 69 >90 mL/min BUN/Creatinine Ratio 29.2 H 10.0-20.0 Serum Glucose 153 H 74-106 mg/dL Calcium Level 8.8 8.7-10.4 mg/dL Total Bilirubin 0.8 0.2-1.0 mg/dL Aspartate Amino Transferase (AST) 84 H 13-40 U/L Alanine Aminotransferase (ALT) 45 H 7-40 U/L Alkaline Phosphatase 92 46-116 U/L Total Protein 6.5 5.7-8.2 g/dL Albumin 3.7 3.2-4.8 g/dL POC Glucose 85 70-106 mg/dl Troponin I High Sensitivity 18 15 </=54 ng/L Test 09/05/25 14:49 Range/Units White Blood Count 10.9 H 4.4-10.8 10^3/uL Red Blood Count 3.26 L 4.5-5.90 10^6/uL Hemoglobin 10.5 L 13.5-17.5 g/dL Hematocrit 28.8 L 41.0-53.0 % Mean Corpuscular Volume 88.5 80.0-100.0 fL Mean Corpuscular Hemoglobin 32.1 H 28.0-32.0 pg Mean Corpuscular Hemoglobin Concent 36.3 H 32.0-36.0 g/dL Red Cell Distribution Width 12.1 11.8-14.3 % Platelet Count 230 140-450 10^3/uL Mean Platelet Volume 7.2 6.9-10.8 fL Neutrophils (%) (Auto) 87.1 H 37.0-80.0 % Lymphocytes (%) (Auto) 5.9 L 10.0-50.0 % Monocytes (%) (Auto) 6.8 0.0-12.0 % Eosinophils (%) (Auto) 0.1 0.0-7.0 % Basophils (%) (Auto) 0.1 0.0-2.0 % Neutrophils # (Auto) 9.5 H 1.6-8.6 10 ^3/uL Lymphocytes # (Auto) 0.6 0.4-5.4 10 ^3/uL Monocytes # (Auto) 0.7 0-1.3 10 ^3/uL Eosinophils # (Auto) 0 0-0.8 10 ^3/uL Basophils # (Auto) 0 0-0.2 10 ^3/uL Nucleated Red Blood Cells 0.0 % Sodium Level 109 *L 136-145 mmol/L Potassium Level 3.9 3.5-5.1 mmol/L Chloride Level 69 L 98-107 mmol/L Carbon Dioxide Level 29 20-31 mmol/L Anion Gap 11 5-15 Blood Urea Nitrogen 39 H 9-23 mg/dL Creatinine 1.40 H 0.700-1.30 mg/dL Glomerular Filtration Rate Calc 54 >90 mL/min BUN/Creatinine Ratio 27.9 H 10.0-20.0 Serum Glucose 141 H 74-106 mg/dL Lactic Acid Level 1.0 0.4-2.0 mmol/L Calcium Level 9.6 8.7-10.4 mg/dL Troponin I High Sensitivity 15 </=54 ng/L Assessment Acute kidney injury secondary hemodynamic mediated Hyponatremia due to excess H2O Rapid correction of hyponatremia > 12 mEq/24 hrs Diabetes mellitus type 2 COPD exacerbation Left lower lobe pneumonia Hypotension Elevated AST and ALT Anemia Recommendations Closely monitor fluid and electrolytes Avoid nephrotoxic medication Strict I&Os Reversal of rapid correction: - Discontinue 3% sodium chloride, patient already received 420 cc - Start IV fluids with D5W at 100 cc/h - Desmopressin 2 mcg IV x1 Check urine electrolytes, protein and urine osmolarity Fluid restrictions Repeat BMP IV antibiotics We will continue to follow Patient seen and examined the ER. I discussed my plan of care with the patient and the primary nurse at the bedside I would like thank Theo for the consult, will follow Plan discussed with: Patient WIN WEAVER MD Sep 06, 2025 11:01
[2025-09-06] MEDS: AZITHROMYCIN 500MG/250ML 250 ML IV SCH (11:40)
[2025-09-06 11:41] LABS: Potassium 3.5 mmol/L (3.5-5.1)
[2025-09-06 11:42] LABS: Anion Gap 8 (5-15); Calcium 9.1 mg/dL (8.7-10.4); Carbon Dioxide 27 mmol/L (20-31)
[2025-09-06 11:43] LABS: Chloride 85 mmol/L (98-107); Sodium 120 mmol/L (136-145)
[2025-09-06 11:47] LABS: BUN/Creatinine Ratio 26.7 (10.0-20.0)
[2025-09-06 11:48] LABS: Blood Urea Nitrogen 32 mg/dL (9-23); Glucose 153 mg/dL (74-106)
[2025-09-06 12:09] LABS: Alanine Aminotransferase 47 U/L (7-40); Albumin 4.0 g/dL (3.2-4.8); Alkaline Phosphatase 98 U/L (46-116); Anion Gap 11 (5-15); BUN/Creatinine Ratio 27.4 (10.0-20.0); Bilirubin, Total 0.7 mg/dL (0.2-1.0); Blood Urea Nitrogen 32 mg/dL (9-23); Calcium 9.1 mg/dL (8.7-10.4); Carbon Dioxide 26 mmol/L (20-31); Chloride 84 mmol/L (98-107); Glucose 152 mg/dL (74-106); Potassium 3.5 mmol/L (3.5-5.1); Sodium 121 mmol/L (136-145); Total Protein 7.0 g/dL (5.7-8.2)
[2025-09-06] MEDS: DESMOPRESSIN ACET 4 MCG/1 ML AMPULE IV ONE (12:15)
--- NOTE | 2025-09-06 12:48 | DVHPN2 ---
Reviewed: Care Plan, H&P, Labs, Medications, Previous Orders, Radiology Changes from previous H/P or p: No Changes Eyes: No Pain, No Vision change, No Conjunctivae inflammation, No Eyelid inflammation, No Other, No Redness ENT: No Ear pain, No Ear discharge, No Nose pain, No Nose discharge, No Nose congestion, No Mouth pain, No Mouth swelling, No Throat pain, No Throat swelling, No Other Cardiovascular: No Chest Pain, No Palpitations, No Orthopnea, No Paroxysmal Noc. Dyspnea, No Edema, No Lt Headedness; Other (Congestion) Respiratory: Cough; No Dry; Shortness of breath; No SOB with excertion, No Wheezing, No Hemoptysis, No Pleuritic Pain, No Sputum, No Other Gastrointestinal: No Nausea, No Vomiting, No Abdominal Pain, No Diarrhea, No Constipation, No Melena, No Hematochezia, No Other Genitourinary: No Dysuria, No Frequency, No Incontinence, No Hematuria, No Retention, No Other Musculoskeletal: No other, No neck pain, No shoulder pain, No arm pain, No back pain, No hand pain, No leg pain, No foot pain Skin: No Rash, No Lesions, No Jaundice, No Bruising, No Other Objective Vitals Vital Signs Date Time Temp Pulse Resp B/P (MAP) Pulse Ox O2 Delivery O2 Flow Rate FiO2 09/06/25 10:00 86 121/51 09/06/25 07:21 97.9 20 100 3.0 32 97.9 09/06/25 07:12 Nasal Cannula* Intake/Output Intake and Output 09/06/25 07:00 Intake Total 270 ml Balance 270 ml Intake IV Total 270 ml Medications Current Medications Medications Dose Ordered Sig/Juan F Route Start Time Stop Time Status Last Admin Dose Admin Atorvastatin Calcium 20 mg HS PO 09/05/25 22:00 09/05/25 23:20 20 MG Amlodipine Besylate 5 mg DAILY PO 09/06/25 10:00 Carvedilol 12.5 mg Q12HR PO 09/05/25 22:00 Clonidine HCl 0.1 mg Q4HP PRN PO 09/05/25 20:00 Famotidine 20 mg DAILY IV 09/06/25 10:00 09/06/25 10:16 20 MG Ceftriaxone Sodium 50 ml @ 100 mls/hr DAILY@09 IV 09/06/25 09:00 09/06/25 09:17 100 MLS/HR Azithromycin 250 ml @ 125 mls/hr DAILY IV 09/06/25 10:00 09/06/25 11:40 125 MLS/HR Diagnostic Test (Pha) 1 strip ACHS 09/05/25 22:00 09/06/25 11:35 1 STRIP Insulin Human Regular ACHS SC 09/05/25 22:00 09/06/25 11:35 4 UNITS Dextrose 50 ml UD PRN IV 09/05/25 20:00 Acetaminophen/ Hydrocodone Bitart 1 tab Q4HP PRN PO 09/05/25 20:00 Ondansetron HCl 4 mg Q4HP PRN IV 09/05/25 20:00 Docusate Sodium 100 mg BIDPRN PRN PO 09/05/25 20:00 Acetaminophen 650 mg Q6HP PRN PO 09/05/25 20:00 09/05/25 23:24 650 MG Nitroglycerin 0.4 mg Q5MINP PRN SL 09/05/25 22:15 Morphine Sulfate 2 mg Q30M PRN IV 09/05/25 22:15 Dextrose 1,000 ml @ 80 mls/hr [id number] IV 09/06/25 12:15 UNV Laboratory Results Laboratory Tests 09/06/25 02:25 09/06/25 10:16 Chemistry Test 09/05/25 14:49 09/06/25 02:25 09/06/25 10:16 Calcium Level 9.6 mg/dL (8.7-10.4) 8.8 mg/dL (8.7-10.4) 9.1 mg/dL (8.7-10.4) Albumin 3.7 g/dL (3.2-4.8) 4.0 g/dL (3.2-4.8) Total Protein 6.5 g/dL (5.7-8.2) 7.0 g/dL (5.7-8.2) LFT Test 09/06/25 02:25 09/06/25 10:16 Alanine Aminotransferase (ALT) 45 U/L (7-40) H 47 U/L (7-40) H Alkaline Phosphatase 92 U/L (46-116) 98 U/L (46-116) Aspartate Amino Transferase (AST) 84 U/L (13-40) H 92 U/L (13-40) H Total Bilirubin 0.8 mg/dL (0.2-1.0) 0.7 mg/dL (0.2-1.0) Urinalysis Test 09/06/25 03:25 09/06/25 10:16 Urine Color Colorless (Yellow) Urine Clarity Clear (Clear) Urine pH 5.5 (5.0-9.0) Urine Specific [place] 1.007 (1.001-1.035) Urine Protein Negative (Negative) Urine Ketones Trace (Negative) Urine Blood Trace /uL (Negative) H Urine Nitrite Negative (Negative) Urine Bilirubin Negative (Negative) Urine Urobilinogen Normal mg/dL (Negative) Urine Leukocyte Esterase Negative /uL (Negative) Urine RBC <1 /hpf (0 - 3) Urine Microscopic WBC < 1 /HPF (0-3) Urine Squamous Epithelial Cells None seen /hpf (<5) Urine Bacteria None seen /hpf (None Seen) Urine Glucose 4+ mg/dL (Normal) H Urine Osmolality Pending Labs and/or images reviewed: Labs reviewed by me, Image(s) reviewed by me Assessment/Plan Assessment/Plan Acute generalized weakness Sepsis possibly two secondary to pneumonia Acute left lower lobe community-acquired pneumonia Gram-positive versus Gram- negative: Rocephin azithromycin Acute severe hyponatremia sodium 109, given 3 percent sodium chloride consult by 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
[2025-09-06] MEDS: D5W 5% 1,000 ML IV SCH (13:08)
[2025-09-06 14:03] LABS: Urine Protein, UAD TRACE (Negative)
[2025-09-06 14:16] LABS: Protein, Urine 25.5 mg/dL (1-14)
[2025-09-06 18:09] LABS: Anion Gap 9 (5-15); Carbon Dioxide 28 mmol/L (20-31)
[2025-09-06 18:10] LABS: Calcium 8.9 mg/dL (8.7-10.4)
[2025-09-06 18:15] LABS: BUN/Creatinine Ratio 33.3 (10.0-20.0)
[2025-09-06 18:31] LABS: Blood Urea Nitrogen 38 mg/dL (9-23); Chloride 88 mmol/L (98-107); Glucose 222 mg/dL (74-106); Potassium 3.3 mmol/L (3.5-5.1); Sodium 125 mmol/L (136-145)
[2025-09-06 19:11] LABS: COVID19 ANTIGEN SOFIA FIA NEGATIVE (NEGATIVE)
[2025-09-06 19:17] VITALS: PULSE 78; RESP 16; O2SAT 100
[2025-09-06 21:57] VITALS: BP 123/44; PULSE 89; O2SAT 100
[2025-09-07] VITALS (10 sets, daily range): BP systolic 1–146; BP diastolic 55–77; PULSE 63–98; RESP 11–18; TEMP 97.6–97.9; O2SAT 93–100
[2025-09-07 03:07] LABS: Albumin 3.7 g/dL (3.2-4.8); Alkaline Phosphatase 110 U/L (46-116); Anion Gap 11 (5-15); BUN/Creatinine Ratio 30.3 (10.0-20.0); Calcium 9.1 mg/dL (8.7-10.4); Carbon Dioxide 29 mmol/L (20-31); Potassium 3.7 mmol/L (3.5-5.1); Total Protein 6.5 g/dL (5.7-8.2)
[2025-09-07 03:08] LABS: Bilirubin, Total 0.4 mg/dL (0.2-1.0)
[2025-09-07 03:13] LABS: Alanine Aminotransferase 46 U/L (7-40); Blood Urea Nitrogen 37 mg/dL (9-23); Chloride 88 mmol/L (98-107); Glucose 109 mg/dL (74-106); Sodium 128 mmol/L (136-145)
[2025-09-07 03:21] LABS: Hematocrit 26.0 % (41.0-53.0); Hemoglobin 9.3 g/dL (13.5-17.5); Mean Corpuscular Hemoglobin 31.8 pg (28.0-32.0); Mean Corpuscular Volume 88.8 fL (80.0-100.0); Nucleated Red Blood Cells % 0.0 %
--- NOTE | 2025-09-07 09:07 | ECG ---
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
--- NOTE | 2025-09-07 13:28 | DVHPN2 ---
Reviewed: Care Plan, H&P, Labs, Medications, Previous Orders, Radiology Changes from previous H/P or p: No Changes Eyes: No Pain, No Vision change, No Conjunctivae inflammation, No Eyelid inflammation, No Other, No Redness ENT: No Ear pain, No Ear discharge, No Nose pain, No Nose discharge, No Nose congestion, No Mouth pain, No Mouth swelling, No Throat pain, No Throat swelling, No Other Cardiovascular: No Chest Pain, No Palpitations, No Orthopnea, No Paroxysmal Noc. Dyspnea, No Edema, No Lt Headedness; Other (Congestion) Respiratory: Cough; No Dry; Shortness of breath; No SOB with excertion, No Wheezing, No Hemoptysis, No Pleuritic Pain, No Sputum, No Other Gastrointestinal: No Nausea, No Vomiting, No Abdominal Pain, No Diarrhea, No Constipation, No Melena, No Hematochezia, No Other Genitourinary: No Dysuria, No Frequency, No Incontinence, No Hematuria, No Retention, No Other Musculoskeletal: No other, No neck pain, No shoulder pain, No arm pain, No back pain, No hand pain, No leg pain, No foot pain Skin: No Rash, No Lesions, No Jaundice, No Bruising, No Other Objective Vitals Vital Signs Date Time Temp Pulse Resp B/P (MAP) Pulse Ox O2 Delivery O2 Flow Rate FiO2 09/07/25 11:30 78 127/61 09/07/25 11:00 18 100 09/07/25 07:35 97.7 97.7 09/07/25 07:35 Nasal Cannula* 2 28 Intake/Output Intake and Output 09/07/25 06:59 Intake Total 1250 ml Output Total 675 ml Balance 575 ml Intake IV Total 1250 ml Output Urine Total 675 ml # Voids 1 Medications Current Medications Medications Dose Ordered Sig/Juan F Route Start Time Stop Time Status Last Admin Dose Admin Atorvastatin Calcium 20 mg HS PO 09/05/25 22:00 09/06/25 22:02 20 MG Amlodipine Besylate 5 mg DAILY PO 09/06/25 10:00 09/07/25 10:29 5 MG Carvedilol 12.5 mg Q12HR PO 09/05/25 22:00 09/07/25 10:29 12.5 MG Clonidine HCl 0.1 mg Q4HP PRN PO 09/05/25 20:00 Famotidine 20 mg DAILY IV 09/06/25 10:00 09/07/25 10:29 20 MG Ceftriaxone Sodium 50 ml @ 100 mls/hr DAILY@09 IV 09/06/25 09:00 09/07/25 09:09 100 MLS/HR Azithromycin 250 ml @ 125 mls/hr DAILY IV 09/06/25 10:00 09/07/25 10:27 125 MLS/HR Diagnostic Test (Pha) 1 strip ACHS 09/05/25 22:00 09/07/25 11:44 1 STRIP Insulin Human Regular ACHS SC 09/05/25 22:00 09/07/25 11:48 8 UNITS Dextrose 50 ml UD PRN IV 09/05/25 20:00 Acetaminophen/ Hydrocodone Bitart 1 tab Q4HP PRN PO 09/05/25 20:00 Ondansetron HCl 4 mg Q4HP PRN IV 09/05/25 20:00 Docusate Sodium 100 mg BIDPRN PRN PO 09/05/25 20:00 Acetaminophen 650 mg Q6HP PRN PO 09/05/25 20:00 09/07/25 04:23 650 MG Nitroglycerin 0.4 mg Q5MINP PRN SL 09/05/25 22:15 Morphine Sulfate 2 mg Q30M PRN IV 09/05/25 22:15 Dextrose 1,000 ml @ 80 mls/hr [id number] IV 09/06/25 12:15 09/06/25 13:08 80 MLS/HR Laboratory Results Laboratory Tests 09/07/25 02:25 Chemistry Test 09/06/25 17:32 09/07/25 02:25 Calcium Level 8.9 mg/dL (8.7-10.4) 9.1 mg/dL (8.7-10.4) Albumin 3.7 g/dL (3.2-4.8) Total Protein 6.5 g/dL (5.7-8.2) LFT Test 09/07/25 02:25 Alanine Aminotransferase (ALT) 46 U/L (7-40) H Alkaline Phosphatase 110 U/L (46-116) Aspartate Amino Transferase (AST) 95 U/L (13-40) H Total Bilirubin 0.4 mg/dL (0.2-1.0) Urinalysis Test 09/06/25 10:16 12/7/25 13:36 Urine Osmolality 255 mOsm/kg Urine Color Yellow (Yellow) Urine Clarity Clear (Clear) Urine pH 7.0 (5.0-9.0) Urine Specific [place] 1.021 (1.001-1.035) Urine Protein Trace (Negative) H Urine Ketones Negative (Negative) Urine Blood Negative /uL (Negative) Urine Nitrite Negative (Negative) Urine Bilirubin Negative (Negative) Urine Urobilinogen Normal mg/dL (Negative) Urine Leukocyte Esterase Negative /uL (Negative) Urine RBC 3 /hpf (0 - 3) Urine Microscopic WBC 1 /HPF (0-3) Urine Squamous Epithelial Cells Few /hpf (<5) Urine Bacteria None seen /hpf (None Seen) Urine Mucus Few (None Seen) Urine Creatinine 205.29 mg/dL (30.0-125.0) H Urine Protein/Creatinine Ratio 0.12 Urine Sodium 192 mmol/L (40-220) Urine Glucose Normal mg/dL (Normal) Urine Total Protein 25.5 mg/dL (1-14) H Microbiology Microbiology Date/Time Source Procedure Growth Status 09/05/25 14:50 Blood Blood Culture - Preliminary NO GROWTH AFTER 24 HOURS OF INCUBATION. 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 appreciated placed on desmopressin COPD exacerbation Acute dehydration: D5 W Diabetes Hypertension History of pneumonia GERD History of tracheostomy Time spent 66 minutes Patient is full code Advanced care planning time 20 minutes Prognosis is poor Plan discussed with: Patient My Orders Orders - IVORY KEITH MD Procedure Category Date Status Time Complete Blood Count LAB 09/08/25 Verified 05:00 Complete Blood Count LAB 09/09/25 Verified 05:00 Comprehensive LAB 09/08/25 Verified Metabolic Panel 05:00 Comprehensive LAB 09/09/25 Verified Metabolic Panel 05:00 Date of Service: Sep 07, 2025 Billing Provider: IVORY KEITH MD Common Visit Codes: [id number] CARE 30-74 MIN IVORY KEITH MD Sep 07, 2025 13:28
[2025-09-07] MEDS: DEXTROSE (50%) 50ML SYRG IV PRN (17:57)
[2025-09-08] VITALS (19 sets, daily range): BP systolic 1–156; BP diastolic 50–82; PULSE 57–94; RESP 16–20; TEMP 97.5–98.6; O2SAT 92–100
[2025-09-08 07:22] LABS: Hematocrit 29.0 % (41.0-53.0); Hemoglobin 10.4 g/dL (13.5-17.5); Mean Corpuscular Hemoglobin 33.0 pg (28.0-32.0); Mean Corpuscular Volume 91.9 fL (80.0-100.0); Nucleated Red Blood Cells % 0.0 %
[2025-09-08 07:55] LABS: Albumin 3.8 g/dL (3.2-4.8); Alkaline Phosphatase 94 U/L (46-116); Anion Gap 8 (5-15); BUN/Creatinine Ratio 27.6 (10.0-20.0); Calcium 9.7 mg/dL (8.7-10.4); Carbon Dioxide 30 mmol/L (20-31); Glucose 97 mg/dL (74-106); Potassium 4.1 mmol/L (3.5-5.1); Total Protein 6.8 g/dL (5.7-8.2)
[2025-09-08 07:56] LABS: Bilirubin, Total 0.4 mg/dL (0.2-1.0)
[2025-09-08 07:59] LABS: Alanine Aminotransferase 47 U/L (7-40); Blood Urea Nitrogen 29 mg/dL (9-23); Chloride 93 mmol/L (98-107); Sodium 131 mmol/L (136-145)
--- NOTE | 2025-09-08 11:53 | DVHPN2 ---
Progress Note - Dictate Date Seen: Sep 08, 2025 Medical Necessity Reason Pt with a Central, PICC or Fol: No Subjective Patient communicative, lethargic. vital signs Vital Sign Date Time Temp Pulse Resp B/P (MAP) Pulse Ox O2 Delivery O2 Flow Rate FiO2 09/08/25 09:48 94 156/64 09/08/25 09:00 97.8 20 97 97.8 09/08/25 08:28 Nasal Cannula* 2 28 Total Intake and Output 09/07/25 09/07/25 09/08/25 15:00 23:00 07:00 Intake Total 300 ml 400 ml Output Total 600 ml Balance 300 ml -200 ml medications Current Medications Medications Dose Ordered Sig/Juan F Route Start Time Stop Time Status Last Admin Dose Admin Atorvastatin Calcium 20 mg HS PO 09/05/25 22:00 09/07/25 21:02 20 MG Amlodipine Besylate 5 mg DAILY PO 09/06/25 10:00 09/08/25 09:48 5 MG Carvedilol 12.5 mg Q12HR PO 09/05/25 22:00 09/08/25 09:48 12.5 MG Clonidine HCl 0.1 mg Q4HP PRN PO 09/05/25 20:00 Famotidine 20 mg DAILY IV 09/06/25 10:00 09/08/25 09:45 20 MG Ceftriaxone Sodium 50 ml @ 100 mls/hr DAILY@09 IV 09/06/25 09:00 09/08/25 09:36 100 MLS/HR Azithromycin 250 ml @ 125 mls/hr DAILY IV 09/06/25 10:00 09/08/25 09:46 125 MLS/HR Diagnostic Test (Pha) 1 strip ACHS 09/05/25 22:00 09/08/25 11:42 1 STRIP Insulin Human Regular ACHS SC 09/05/25 22:00 09/08/25 11:43 4 UNITS Dextrose 50 ml UD PRN IV 09/05/25 20:00 09/07/25 17:57 50 ML Acetaminophen/ Hydrocodone Bitart 1 tab Q4HP PRN PO 09/05/25 20:00 Ondansetron HCl 4 mg Q4HP PRN IV 09/05/25 20:00 Docusate Sodium 100 mg BIDPRN PRN PO 09/05/25 20:00 Acetaminophen 650 mg Q6HP PRN PO 09/05/25 20:00 09/07/25 20:44 650 MG Nitroglycerin 0.4 mg Q5MINP PRN SL 09/05/25 22:15 Morphine Sulfate 2 mg Q30M PRN IV 09/05/25 22:15 Dextrose 1,000 ml @ 80 mls/hr [id number] IV 09/06/25 12:15 09/06/25 13:08 80 MLS/HR objective Gen: nad, chronically ill-appearing heent: nc/at, mmm lungs: cta anteriorly cvs: no rub abd: soft, bowel sounds audible ext: no edema laboratory and microbiology Laboratory Tests 09/08/25 06:23 Test 09/08/25 06:23 Range/Units Serum Glucose 97 74-106 mg/dL Assessment/Plan IMP: Acute kidney injury secondary hemodynamic mediated Hyponatremia due to excess H2O/ urine osmolality without maximally dilute urine that is 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 Rapid correction of hyponatremia > 12 mEq/24 hrs Diabetes mellitus type 2 COPD exacerbation Left lower lobe pneumonia Hypotension Elevated AST and ALT Anemia Recommendations - continue with D5W Plan discussed with: Other JEEVAN CONDE MD Sep 08, 2025 11:53
--- NOTE | 2025-09-08 12:48 | DVHPN2 ---
Reviewed: Care Plan, H&P, Labs, Medications, Previous Orders, Radiology Changes from previous H/P or p: No Changes Eyes: No Pain, No Vision change, No Conjunctivae inflammation, No Eyelid inflammation, No Other, No Redness ENT: No Ear pain, No Ear discharge, No Nose pain, No Nose discharge, No Nose congestion, No Mouth pain, No Mouth swelling, No Throat pain, No Throat swelling, No Other Cardiovascular: No Chest Pain, No Palpitations, No Orthopnea, No Paroxysmal Noc. Dyspnea, No Edema, No Lt Headedness; Other (Congestion) Respiratory: Cough; No Dry; Shortness of breath; No SOB with excertion, No Wheezing, No Hemoptysis, No Pleuritic Pain, No Sputum, No Other Gastrointestinal: No Nausea, No Vomiting, No Abdominal Pain, No Diarrhea, No Constipation, No Melena, No Hematochezia, No Other Genitourinary: No Dysuria, No Frequency, No Incontinence, No Hematuria, No Retention, No Other Musculoskeletal: No other, No neck pain, No shoulder pain, No arm pain, No back pain, No hand pain, No leg pain, No foot pain Skin: No Rash, No Lesions, No Jaundice, No Bruising, No Other Objective Vitals Vital Signs Date Time Temp Pulse Resp B/P (MAP) Pulse Ox O2 Delivery O2 Flow Rate FiO2 09/08/25 09:48 94 156/64 09/08/25 09:00 97.8 20 97 97.8 09/08/25 08:28 Nasal Cannula* 2 28 Intake/Output Intake and Output 09/08/25 07:00 Intake Total 700 ml Output Total 600 ml Balance 100 ml Intake Oral 400 ml IV Total 300 ml Output Urine Total 600 ml Medications Current Medications Medications Dose Ordered Sig/Juan F Route Start Time Stop Time Status Last Admin Dose Admin Atorvastatin Calcium 20 mg HS PO 09/05/25 22:00 09/07/25 21:02 20 MG Amlodipine Besylate 5 mg DAILY PO 09/06/25 10:00 09/08/25 09:48 5 MG Carvedilol 12.5 mg Q12HR PO 09/05/25 22:00 09/08/25 09:48 12.5 MG Clonidine HCl 0.1 mg Q4HP PRN PO 09/05/25 20:00 Famotidine 20 mg DAILY IV 09/06/25 10:00 09/08/25 09:45 20 MG Ceftriaxone Sodium 50 ml @ 100 mls/hr DAILY@09 IV 09/06/25 09:00 09/08/25 09:36 100 MLS/HR Azithromycin 250 ml @ 125 mls/hr DAILY IV 09/06/25 10:00 09/08/25 09:46 125 MLS/HR Diagnostic Test (Pha) 1 strip ACHS 09/05/25 22:00 09/08/25 11:42 1 STRIP Insulin Human Regular ACHS SC 09/05/25 22:00 09/08/25 11:43 4 UNITS Dextrose 50 ml UD PRN IV 09/05/25 20:00 09/07/25 17:57 50 ML Acetaminophen/ Hydrocodone Bitart 1 tab Q4HP PRN PO 09/05/25 20:00 Ondansetron HCl 4 mg Q4HP PRN IV 09/05/25 20:00 Docusate Sodium 100 mg BIDPRN PRN PO 09/05/25 20:00 Acetaminophen 650 mg Q6HP PRN PO 09/05/25 20:00 09/07/25 20:44 650 MG Nitroglycerin 0.4 mg Q5MINP PRN SL 09/05/25 22:15 Morphine Sulfate 2 mg Q30M PRN IV 09/05/25 22:15 Dextrose 1,000 ml @ 80 mls/hr [id number] IV 09/06/25 12:15 09/06/25 13:08 80 MLS/HR Laboratory Results Laboratory Tests 09/08/25 06:23 Chemistry Test 09/08/25 06:23 Albumin 3.8 g/dL (3.2-4.8) Calcium Level 9.7 mg/dL (8.7-10.4) Total Protein 6.8 g/dL (5.7-8.2) LFT Test 09/08/25 06:23 Alanine Aminotransferase (ALT) 47 U/L (7-40) H Alkaline Phosphatase 94 U/L (46-116) Aspartate Amino Transferase (AST) 74 U/L (13-40) H Total Bilirubin 0.4 mg/dL (0.2-1.0) Urinalysis Test 09/06/25 10:16 09/06/25 13:36 Urine Osmolality 255 mOsm/kg Urine Color Yellow (Yellow) Urine Clarity Clear (Clear) Urine pH 7.0 (5.0-9.0) Urine Specific [place] 1.021 (1.001-1.035) Urine Protein Trace (Negative) H Urine Ketones Negative (Negative) Urine Blood Negative /uL (Negative) Urine Nitrite Negative (Negative) Urine Bilirubin Negative (Negative) Urine Urobilinogen Normal mg/dL (Negative) Urine Leukocyte Esterase Negative /uL (Negative) Urine RBC 3 /hpf (0 - 3) Urine Microscopic WBC 1 /HPF (0-3) Urine Squamous Epithelial Cells Few /hpf (<5) Urine Bacteria None seen /hpf (None Seen) Urine Mucus Few (None Seen) Urine Creatinine 205.29 mg/dL (30.0-125.0) H Urine Protein/Creatinine Ratio 0.12 Urine Sodium 192 mmol/L (40-220) Urine Glucose Normal mg/dL (Normal) Urine Total Protein 25.5 mg/dL (1-14) H Microbiology Microbiology Date/Time Source Procedure Growth Status 09/05/25 14:50 Blood Blood Culture - Preliminary NO GROWTH AFTER 48 HOURS OF INCUBATION. 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
[2025-09-08] MEDS ORDERED: ALBUTEROL SULF 2.5 MG/0.5ML(0.5%) NEB SOLN NEB PRN (13:00)
[2025-09-08] MEDS: IPRATROPIUM BROM 0.5 MG/2.5ML INH SOL NEB SCH (14:00)
[2025-09-08] MEDS: ALBUTEROL SULF 2.5 MG/0.5ML(0.5%) NEB SOLN NEB SCH (14:00)
[2025-09-09] VITALS (25 sets, daily range): BP systolic 113–157; BP diastolic 64–80; PULSE 68–83; RESP 16–20; TEMP 97.7–98.5; O2SAT 95–100
[2025-09-09 07:38] LABS: Hematocrit 27.7 % (41.0-53.0); Hemoglobin 9.7 g/dL (13.5-17.5); Mean Corpuscular Hemoglobin 32.1 pg (28.0-32.0); Mean Corpuscular Volume 91.7 fL (80.0-100.0); Nucleated Red Blood Cells % 0.1 %
[2025-09-09 07:49] LABS: Albumin 3.8 g/dL (3.2-4.8); Alkaline Phosphatase 93 U/L (46-116); Anion Gap 8 (5-15); BUN/Creatinine Ratio 23.3 (10.0-20.0); Bilirubin, Total 0.4 mg/dL (0.2-1.0); Calcium 9.7 mg/dL (8.7-10.4); Potassium 4.4 mmol/L (3.5-5.1); Total Protein 6.8 g/dL (5.7-8.2)
[2025-09-09 07:52] LABS: Alanine Aminotransferase 45 U/L (7-40); Blood Urea Nitrogen 27 mg/dL (9-23); Carbon Dioxide 32 mmol/L (20-31); Chloride 91 mmol/L (98-107); Glucose 123 mg/dL (74-106); Sodium 131 mmol/L (136-145)
--- NOTE | 2025-09-09 14:17 | DVHPN2 ---
Reviewed: Care Plan, H&P, Labs, Medications, Previous Orders, Radiology Changes from previous H/P or p: No Changes Eyes: No Pain, No Vision change, No Conjunctivae inflammation, No Eyelid inflammation, No Other, No Redness ENT: No Ear pain, No Ear discharge, No Nose pain, No Nose discharge, No Nose congestion, No Mouth pain, No Mouth swelling, No Throat pain, No Throat swelling, No Other Cardiovascular: No Chest Pain, No Palpitations, No Orthopnea, No Paroxysmal Noc. Dyspnea, No Edema, No Lt Headedness; Other (Congestion) Respiratory: Cough; No Dry; Shortness of breath; No SOB with excertion, No Wheezing, No Hemoptysis, No Pleuritic Pain, No Sputum, No Other Gastrointestinal: No Nausea, No Vomiting, No Abdominal Pain, No Diarrhea, No Constipation, No Melena, No Hematochezia, No Other Genitourinary: No Dysuria, No Frequency, No Incontinence, No Hematuria, No Retention, No Other Musculoskeletal: No other, No neck pain, No shoulder pain, No arm pain, No back pain, No hand pain, No leg pain, No foot pain Skin: No Rash, No Lesions, No Jaundice, No Bruising, No Other Objective Vitals Vital Signs Date Time Temp Pulse Resp B/P (MAP) Pulse Ox O2 Delivery O2 Flow Rate FiO2 09/09/25 12:34 98.2 75 16 131/72 (91) 100 98.2 09/09/25 08:30 Nasal Cannula* 2 28 Intake/Output Intake and Output 09/09/25 07:00 Intake Total 700 ml Output Total 900 ml Balance -200 ml Intake Oral 700 ml Output Urine Total 900 ml Stool Total 0 ml Medications Current Medications Medications Dose Ordered Sig/Juan F Route Start Time Stop Time Status Last Admin Dose Admin Atorvastatin Calcium 20 mg HS PO 09/05/25 22:00 09/08/25 22:14 20 MG Amlodipine Besylate 5 mg DAILY PO 09/06/25 10:00 09/09/25 09:26 5 MG Carvedilol 12.5 mg Q12HR PO 09/05/25 22:00 09/09/25 09:23 12.5 MG Clonidine HCl 0.1 mg Q4HP PRN PO 09/05/25 20:00 Famotidine 20 mg DAILY IV 09/06/25 10:00 09/09/25 09:38 20 MG Ceftriaxone Sodium 50 ml @ 100 mls/hr DAILY@09 IV 09/06/25 09:00 09/09/25 09:17 100 MLS/HR Azithromycin 250 ml @ 125 mls/hr DAILY IV 09/06/25 10:00 09/09/25 10:38 125 MLS/HR Diagnostic Test (Pha) 1 strip ACHS 09/05/25 22:00 09/09/25 12:16 1 STRIP Insulin Human Regular ACHS SC 09/05/25 22:00 09/09/25 12:16 4 UNITS Dextrose 50 ml UD PRN IV 09/05/25 20:00 09/07/25 17:57 50 ML Acetaminophen/ Hydrocodone Bitart 1 tab Q4HP PRN PO 09/05/25 20:00 Ondansetron HCl 4 mg Q4HP PRN IV 09/05/25 20:00 Docusate Sodium 100 mg BIDPRN PRN PO 09/05/25 20:00 Acetaminophen 650 mg Q6HP PRN PO 09/05/25 20:00 09/09/25 09:28 650 MG Nitroglycerin 0.4 mg Q5MINP PRN SL 09/05/25 22:15 Morphine Sulfate 2 mg Q30M PRN IV 09/05/25 22:15 Dextrose 1,000 ml @ 80 mls/hr [id number] IV 09/06/25 12:15 09/06/25 13:08 80 MLS/HR Ipratropium [place] 0.5 mg Q4HR NEB 09/08/25 14:00 09/09/25 10:03 0.5 MG Albuterol 2.5 mg Q4HR NEB 09/08/25 14:00 09/09/25 10:03 2.5 MG Laboratory Results Laboratory Tests 09/09/25 06:27 Chemistry Test 09/09/25 06:27 Albumin 3.8 g/dL (3.2-4.8) Calcium Level 9.7 mg/dL (8.7-10.4) Total Protein 6.8 g/dL (5.7-8.2) LFT Test 09/09/25 06:27 Alanine Aminotransferase (ALT) 45 U/L (7-40) H Alkaline Phosphatase 93 U/L (46-116) Aspartate Amino Transferase (AST) 52 U/L (13-40) H Total Bilirubin 0.4 mg/dL (0.2-1.0) Urinalysis Test 09/06/25 10:16 09/06/25 13:36 Urine Osmolality 255 mOsm/kg Urine Color Yellow (Yellow) Urine Clarity Clear (Clear) Urine pH 7.0 (5.0-9.0) Urine Specific [place] 1.021 (1.001-1.035) Urine Protein Trace (Negative) H Urine Ketones Negative (Negative) Urine Blood Negative /uL (Negative) Urine Nitrite Negative (Negative) Urine Bilirubin Negative (Negative) Urine Urobilinogen Normal mg/dL (Negative) Urine Leukocyte Esterase Negative /uL (Negative) Urine RBC 3 /hpf (0 - 3) Urine Microscopic WBC 1 /HPF (0-3) Urine Squamous Epithelial Cells Few /hpf (<5) Urine Bacteria None seen /hpf (None Seen) Urine Mucus Few (None Seen) Urine Creatinine 205.29 mg/dL (30.0-125.0) H Urine Protein/Creatinine Ratio 0.12 Urine Sodium 192 mmol/L (40-220) Urine Glucose Normal mg/dL (Normal) Urine Total Protein 25.5 mg/dL (1-14) H Microbiology Microbiology Date/Time Source Procedure Growth Status 09/05/25 14:50 Blood Blood Culture - Preliminary NO GROWTH AFTER 72 HOURS OF INCUBATION. 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
[2025-09-09] MEDS: GABAPENTIN 100 MG CAP PO SCH (15:17)
[2025-09-09] MEDS: HYDROcodone-ACET 5/325MG TAB PO PRN (18:06)
--- NOTE | 2025-09-09 19:35 | DVHPN2 ---
Progress Note - Dictate Date Seen: Sep 09, 2025 Medical Necessity Reason Pt with a Central, PICC or Fol: No Subjective Patient more alert today, family at bedside vital signs Vital Sign Date Time Temp Pulse Resp B/P (MAP) Pulse Ox O2 Delivery O2 Flow Rate FiO2 09/09/25 19:33 74 16 100 09/09/25 19:27 Nasal Cannula 1.0 09/09/25 19:27 24 09/09/25 16:54 98.5 133/69 (90) 98.5 Total Intake and Output 09/08/25 09/08/25 09/09/25 15:00 23:00 07:00 Intake Total 450 ml 250 ml Output Total 900 ml Balance 450 ml -650 ml medications Current Medications Medications Dose Ordered Sig/Juan F Route Start Time Stop Time Status Last Admin Dose Admin Atorvastatin Calcium 20 mg HS PO 09/05/25 22:00 09/08/25 22:14 20 MG Amlodipine Besylate 5 mg DAILY PO 09/06/25 10:00 09/09/25 09:26 5 MG Carvedilol 12.5 mg Q12HR PO 09/05/25 22:00 09/09/25 09:23 12.5 MG Clonidine HCl 0.1 mg Q4HP PRN PO 09/05/25 20:00 Famotidine 20 mg DAILY IV 09/06/25 10:00 09/09/25 09:38 20 MG Ceftriaxone Sodium 50 ml @ 100 mls/hr DAILY@09 IV 09/06/25 09:00 09/09/25 09:17 100 MLS/HR Azithromycin 250 ml @ 125 mls/hr DAILY IV 09/06/25 10:00 09/09/25 10:38 125 MLS/HR Diagnostic Test (Pha) 1 strip ACHS 09/05/25 22:00 09/09/25 17:00 1 STRIP Insulin Human Regular ACHS SC 09/05/25 22:00 09/09/25 17:00 3 UNITS Dextrose 50 ml UD PRN IV 09/05/25 20:00 09/07/25 17:57 50 ML Acetaminophen/ Hydrocodone Bitart 1 tab Q4HP PRN PO 09/05/25 20:00 09/09/25 18:06 1 TAB Ondansetron HCl 4 mg Q4HP PRN IV 09/05/25 20:00 Docusate Sodium 100 mg BIDPRN PRN PO 09/05/25 20:00 Acetaminophen 650 mg Q6HP PRN PO 09/05/25 20:00 09/09/25 09:28 650 MG Nitroglycerin 0.4 mg Q5MINP PRN SL 09/05/25 22:15 Morphine Sulfate 2 mg Q30M PRN IV 09/05/25 22:15 Ipratropium [place] 0.5 mg Q4HR NEB 09/08/25 14:00 09/09/25 19:27 0.5 MG Albuterol 2.5 mg Q4HR NEB 09/08/25 14:00 09/09/25 19:27 2.5 MG Gabapentin 200 mg TID PO 09/09/25 14:00 09/09/25 15:17 200 MG objective Gen: nad, chronically ill-appearing heent: nc/at, mmm lungs: cta anteriorly cvs: no rub abd: soft, bowel sounds audible ext: no edema laboratory and microbiology Laboratory Tests 09/09/25 06:27 Test 09/09/25 06:27 Range/Units Serum Glucose 123 H 74-106 mg/dL Assessment/Plan IMP: Acute kidney injury secondary hemodynamic mediated Hyponatremia due to excess H2O/ urine osmolality without maximally dilute urine that is 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 Rapid correction of hyponatremia > 12 mEq/24 hrs Diabetes mellitus type 2 COPD exacerbation Left lower lobe pneumonia Hypotension Elevated AST and ALT Anemia Recommendations - can discontinue D5 - stable serum sodium - mentation improved Plan discussed with: Other JEEVAN CONDE MD Sep 09, 2025 19:35
[2025-09-10] VITALS (15 sets, daily range): BP systolic 117–149; BP diastolic 63–81; PULSE 62–82; RESP 16–20; TEMP 97.7–98.3; O2SAT 97–100
--- NOTE | 2025-09-10 11:38 | DVHPN2 ---
Reviewed: Care Plan, H&P, Labs, Medications, Previous Orders, Radiology Changes from previous H/P or p: No Changes Eyes: No Pain, No Vision change, No Conjunctivae inflammation, No Eyelid inflammation, No Other, No Redness ENT: No Ear pain, No Ear discharge, No Nose pain, No Nose discharge, No Nose congestion, No Mouth pain, No Mouth swelling, No Throat pain, No Throat swelling, No Other Cardiovascular: No Chest Pain, No Palpitations, No Orthopnea, No Paroxysmal Noc. Dyspnea, No Edema, No Lt Headedness; Other (Congestion) Respiratory: Cough; No Dry; Shortness of breath; No SOB with excertion, No Wheezing, No Hemoptysis, No Pleuritic Pain, No Sputum, No Other Gastrointestinal: No Nausea, No Vomiting, No Abdominal Pain, No Diarrhea, No Constipation, No Melena, No Hematochezia, No Other Genitourinary: No Dysuria, No Frequency, No Incontinence, No Hematuria, No Retention, No Other Musculoskeletal: No other, No neck pain, No shoulder pain, No arm pain, No back pain, No hand pain, No leg pain, No foot pain Skin: No Rash, No Lesions, No Jaundice, No Bruising, No Other Objective Vitals Vital Signs Date Time Temp Pulse Resp B/P (MAP) Pulse Ox O2 Delivery O2 Flow Rate FiO2 09/10/25 10:36 80 20 100 09/10/25 09:02 149/75 09/10/25 09:00 97.8 97.8 09/10/25 08:00 Nasal Cannula* 2 28 Intake/Output Intake and Output 09/10/25 07:00 Intake Total 2705 ml Output Total 1375 ml Balance 1330 ml Intake Oral 2405 ml IV Total 300 ml Output Urine Total 1375 ml Medications Current Medications Medications Dose Ordered Sig/Juan F Route Start Time Stop Time Status Last Admin Dose Admin Atorvastatin Calcium 20 mg HS PO 09/05/25 22:00 09/09/25 22:01 20 MG Amlodipine Besylate 5 mg DAILY PO 09/06/25 10:00 09/10/25 09:02 5 MG Carvedilol 12.5 mg Q12HR PO 09/05/25 22:00 09/10/25 08:58 12.5 MG Clonidine HCl 0.1 mg Q4HP PRN PO 09/05/25 20:00 Famotidine 20 mg DAILY IV 09/06/25 10:00 09/10/25 09:03 20 MG Ceftriaxone Sodium 50 ml @ 100 mls/hr DAILY@09 IV 09/06/25 09:00 09/10/25 08:57 100 MLS/HR Azithromycin 250 ml @ 125 mls/hr DAILY IV 09/06/25 10:00 09/10/25 09:03 125 MLS/HR Diagnostic Test (Pha) 1 strip ACHS 09/05/25 22:00 09/10/25 07:01 1 STRIP Insulin Human Regular ACHS SC 09/05/25 22:00 09/09/25 22:04 6 UNITS Dextrose 50 ml UD PRN IV 09/05/25 20:00 09/07/25 17:57 50 ML Acetaminophen/ Hydrocodone Bitart 1 tab Q4HP PRN PO 09/05/25 20:00 09/09/25 18:06 1 TAB Ondansetron HCl 4 mg Q4HP PRN IV 09/05/25 20:00 Docusate Sodium 100 mg BIDPRN PRN PO 09/05/25 20:00 Acetaminophen 650 mg Q6HP PRN PO 09/05/25 20:00 09/09/25 09:28 650 MG Nitroglycerin 0.4 mg Q5MINP PRN SL 09/05/25 22:15 Morphine Sulfate 2 mg Q30M PRN IV 09/05/25 22:15 Ipratropium [place] 0.5 mg Q4HR NEB 09/08/25 14:00 09/10/25 10:26 0.5 MG Albuterol 2.5 mg Q4HR NEB 09/08/25 14:00 09/10/25 10:26 2.5 MG Gabapentin 200 mg TID PO 09/09/25 14:00 09/10/25 07:02 200 MG Laboratory Results Laboratory Tests 09/09/25 06:27 Urinalysis Test 09/06/25 10:16 09/06/25 13:36 Urine Osmolality 255 mOsm/kg Urine Color Yellow (Yellow) Urine Clarity Clear (Clear) Urine pH 7.0 (5.0-9.0) Urine Specific [place] 1.021 (1.001-1.035) Urine Protein Trace (Negative) H Urine Ketones Negative (Negative) Urine Blood Negative /uL (Negative) Urine Nitrite Negative (Negative) Urine Bilirubin Negative (Negative) Urine Urobilinogen Normal mg/dL (Negative) Urine Leukocyte Esterase Negative /uL (Negative) Urine RBC 3 /hpf (0 - 3) Urine Microscopic WBC 1 /HPF (0-3) Urine Squamous Epithelial Cells Few /hpf (<5) Urine Bacteria None seen /hpf (None Seen) Urine Mucus Few (None Seen) Urine Creatinine 205.29 mg/dL (30.0-125.0) H Urine Protein/Creatinine Ratio 0.12 Urine Sodium 192 mmol/L (40-220) Urine Glucose Normal mg/dL (Normal) Urine Total Protein 25.5 mg/dL (1-14) H Microbiology Microbiology Date/Time Source Procedure Growth Status 09/05/25 14:50 Blood Blood Culture - Preliminary NO GROWTH AFTER 72 HOURS OF INCUBATION. Resulted Labs and/or images reviewed: Labs reviewed by me, Image(s) reviewed by me Assessment/Plan Assessment/Plan Acute generalized weakness Sepsis possibly secondary to pneumonia Acute left lower lobe community-acquired pneumonia Gram-positive versus Gram- negative: Rocephin azithromycin Acute severe hyponatremia sodium 109, due to excessive water given 3 percent sodium chloride improved to 128 consult by usability engineer appreciated placed on desmopressin COPD exacerbation med neb Acute dehydration: Continue D5 W Diabetes mellitus type 2 Hypertension History of pneumonia GERD History of tracheostomy Time spent 66 minutes Patient is full code Advanced care planning time 20 minutes Prognosis is poor Plan discussed with: Patient My Orders Orders - IVORY KEITH MD Procedure Category Date Status Time Gabapentin Capsule PHA 09/09/25 In Process (Neurontin Capsule) 14:00 Date of Service: Sep 10, 2025 Billing Provider: IVORY KEITH MD Common Visit Codes: [id number] INP/OBS CARE(HIGH) IVORY KEITH MD Sep 10, 2025 11:38
--- NOTE | 2025-09-10 11:45 | DVHDS2 ---
Discharge Summary Date of Admission Sep 05, 2025 at 22:02 Date of Discharge: Sep 10, 2025 Admitting Diagnosis Altered mental status confusion Wounds: None Labs/Diagnostic Data: Laboratory Results Test 09/10/25 06:14 09/09/25 06:27 09/06/25 17:48 09/06/25 13:36 POC Glucose 119 mg/dl (70-106) White Blood Count 8.7 10^3/uL (4.4-10.8) Red Blood Count 3.02 10^6/uL (4.5-5.90) Hemoglobin 9.7 g/dL (13.5-17.5) Hematocrit 27.7 % (41.0-53.0) Mean Corpuscular Volume 91.7 fL (80.0-100.0) Mean Corpuscular Hemoglobin 32.1 pg (28.0-32.0) Mean Corpuscular Hemoglobin Concent 35.0 g/dL (32.0-36.0) Red Cell Distribution Width 12.6 % (11.8-14.3) Platelet Count 265 10^3/uL (140-450) Mean Platelet Volume 6.7 fL (6.9-10.8) Neutrophils (%) (Auto) 71.0 % (37.0-80.0) Lymphocytes (%) (Auto) 14.3 % (10.0-50.0) Monocytes (%) (Auto) 12.3 % (0.0-12.0) Eosinophils (%) (Auto) 1.8 % (0.0-7.0) Basophils (%) (Auto) 0.6 % (0.0-2.0) Neutrophils # (Auto) 6.2 10 ^3/uL (1.6-8.6) Lymphocytes # (Auto) 1.2 10 ^3/uL (0.4-5.4) Monocytes # (Auto) 1.1 10 ^3/uL (0-1.3) Eosinophils # (Auto) 0.2 10 ^3/uL (0-0.8) Basophils # (Auto) 0.1 10 ^3/uL (0-0.2) Nucleated Red Blood Cells 0.1 % Sodium Level 131 mmol/L (136-145) Potassium Level 4.4 mmol/L (3.5-5.1) Chloride Level 91 mmol/L (98-107) Carbon Dioxide Level 32 mmol/L (20-31) Anion Gap 8 (5-15) Blood Urea Nitrogen 27 mg/dL (9-23) Creatinine 1.16 mg/dL (0.700-1.30) Glomerular Filtration Rate Calc 67 mL/min (>90) BUN/Creatinine Ratio 23.3 (10.0-20.0) Serum Glucose 123 mg/dL (74-106) Calcium Level 9.7 mg/dL (8.7-10.4) Total Bilirubin 0.4 mg/dL (0.2-1.0) Aspartate Amino Transferase (AST) 52 U/L (13-40) Alanine Aminotransferase (ALT) 45 U/L (7-40) Alkaline Phosphatase 93 U/L (46-116) Total Protein 6.8 g/dL (5.7-8.2) Albumin 3.8 g/dL (3.2-4.8) Influenza Type A Antigen Negative (Negative) Influenza Type B Antigen Negative (Negative) SARS-CoV-2 Antigen (Rapid) Negative (NEGATIVE) Urine Color Yellow (Yellow) Urine Clarity Clear (Clear) Urine pH 7.0 (5.0-9.0) Urine Specific [place] 1.021 (1.001-1.035) Urine Protein Trace (Negative) Urine Ketones Negative (Negative) Urine Blood Negative /uL (Negative) Urine Nitrite Negative (Negative) Urine Bilirubin Negative (Negative) Urine Urobilinogen Normal mg/dL (Negative) Urine Leukocyte Esterase Negative /uL (Negative) Urine RBC 3 /hpf (0 - 3) Urine Microscopic WBC 1 /HPF (0-3) Urine Squamous Epithelial Cells Few /hpf (<5) Urine Bacteria None seen /hpf (None Seen) Urine Mucus Few (None Seen) Urine Creatinine 205.29 mg/dL (30.0-125.0) Urine Protein/Creatinine Ratio 0.12 Urine Sodium 192 mmol/L (40-220) Urine Glucose Normal mg/dL (Normal) Urine Total Protein 25.5 mg/dL (1-14) Test 09/06/25 10:16 09/05/25 18:53 09/05/25 14:49 Urine Osmolality 255 mOsm/kg Serum Osmolality 272 mOsm/kg (278-298) Troponin I High Sensitivity 18 ng/L (</=54) Lactic Acid Level 1.0 mmol/L (0.4-2.0) Other Laboratory Tests 09/09/25 06:27 Consults/Reason for consult Nephrology Dr. Katharine Luther Operations or Procedures None Condition at Discharge: Fair Final Diagnosis/Problems List Discharge Disposition: Care Home Facility Discharge Instruct/Medications Diet: Cardiac 2g Na,low cholest Activity: Light activity Follow Up/Referral: Follow up with the [facility] Medications: Rocephin 1 g IV daily for two weeks Azithromycin 500 mg IV daily for two weeks Both for pneumonia see List for other medications Scheduled Amlodipine Besylate (Amlodipine Besylate), 1 TAB PO QPM, (Reported) Atorvastatin Calcium (Atorvastatin Calcium), 1 TAB PO HS, (Reported) Azithromycin (Azithromycin), 250 MG PO DAILY Carvedilol (Carvedilol), 1 TAB PO BID, (Reported) Cholecalciferol (Vitamin D-3), 1 TAB PO DAILY, (Reported) Dapagliflozin Propanediol (Farxiga), 1 TAB PO DAILY, (Reported) Ergocalciferol (Vitamin D 84054 Unit), 50,000 UNIT PO QWEEKLY Furosemide (Furosemide), 1 TAB PO DAILY Glipizide (Glipizide), 1 TAB PO DAILY, (Reported) Losartan Potassium & Hydrochlo (Losartan Potassium/Hydroc), 1 TAB PO DAILY Prednisone (Prednisone), 5 MG PO DAILY Prednisone (Prednisone), 10 MG PO DAILY Prednisone (Prednisone), 20 MG PO DAILY Prednisone (Prednisone), 40 MG PO DAILY Sitagliptin Phosphate (Januvia), 1 TAB PO DAILY, (Reported) Umeclidinium-Vilanterol (Anoro Ellipta 62.5-25 Mcg/INH), 1 AER IN DAILY, (Reported) Scheduled PRN Albuterol Sulfate (Albuterol Sulfate Hfa), 2 PUFF IN Q6HP PRN for WHEEZING, (Reported) Famotidine (Famotidine), 1 TAB PO BID PRN for HEARTBURN, (Reported) 39 (Time taken for discharge summary 39 minutes) Discharge Statement: "Patient was advised to return to the ER or call 911 if any headaches, dizziness, shortness of breath, chest pain, abdominal pain, bleeding, fevers, or worsening of medical condition. Patient was counseled about treatment plan, medications, possible side effects, patientverbalized understanding. All questions were answered to the best of my ability. This discharge took greater then 30 minutes in planning, reviewing documentation, counseling the patient, and discussing with other team members." ASSESSMENT ASSESSMENT Assessment Rocephin 1 g IV daily for two weeks Azithromycin 500 mg IV daily for two weeks Both for pneumonia IVORY KEITH MD Sep 10, 2025 11:45
--- NOTE | 2025-09-10 11:52 | DVHDS2 ---
Discharge Summary Date of Admission Sep 05, 2025 at 22:02 Date of Discharge: Sep 10, 2025 Admitting Diagnosis Generalized weakness and altered mental status Wounds: None Labs/Diagnostic Data: Laboratory Results Test 09/10/25 06:14 09/09/25 06:27 09/06/25 17:48 09/06/25 13:36 POC Glucose 119 mg/dl (70-106) White Blood Count 8.7 10^3/uL (4.4-10.8) Red Blood Count 3.02 10^6/uL (4.5-5.90) Hemoglobin 9.7 g/dL (13.5-17.5) Hematocrit 27.7 % (41.0-53.0) Mean Corpuscular Volume 91.7 fL (80.0-100.0) Mean Corpuscular Hemoglobin 32.1 pg (28.0-32.0) Mean Corpuscular Hemoglobin Concent 35.0 g/dL (32.0-36.0) Red Cell Distribution Width 12.6 % (11.8-14.3) Platelet Count 265 10^3/uL (140-450) Mean Platelet Volume 6.7 fL (6.9-10.8) Neutrophils (%) (Auto) 71.0 % (37.0-80.0) Lymphocytes (%) (Auto) 14.3 % (10.0-50.0) Monocytes (%) (Auto) 12.3 % (0.0-12.0) Eosinophils (%) (Auto) 1.8 % (0.0-7.0) Basophils (%) (Auto) 0.6 % (0.0-2.0) Neutrophils # (Auto) 6.2 10 ^3/uL (1.6-8.6) Lymphocytes # (Auto) 1.2 10 ^3/uL (0.4-5.4) Monocytes # (Auto) 1.1 10 ^3/uL (0-1.3) Eosinophils # (Auto) 0.2 10 ^3/uL (0-0.8) Basophils # (Auto) 0.1 10 ^3/uL (0-0.2) Nucleated Red Blood Cells 0.1 % Sodium Level 131 mmol/L (136-145) Potassium Level 4.4 mmol/L (3.5-5.1) Chloride Level 91 mmol/L (98-107) Carbon Dioxide Level 32 mmol/L (20-31) Anion Gap 8 (5-15) Blood Urea Nitrogen 27 mg/dL (9-23) Creatinine 1.16 mg/dL (0.700-1.30) Glomerular Filtration Rate Calc 67 mL/min (>90) BUN/Creatinine Ratio 23.3 (10.0-20.0) Serum Glucose 123 mg/dL (74-106) Calcium Level 9.7 mg/dL (8.7-10.4) Total Bilirubin 0.4 mg/dL (0.2-1.0) Aspartate Amino Transferase (AST) 52 U/L (13-40) Alanine Aminotransferase (ALT) 45 U/L (7-40) Alkaline Phosphatase 93 U/L (46-116) Total Protein 6.8 g/dL (5.7-8.2) Albumin 3.8 g/dL (3.2-4.8) Influenza Type A Antigen Negative (Negative) Influenza Type B Antigen Negative (Negative) SARS-CoV-2 Antigen (Rapid) Negative (NEGATIVE) Urine Color Yellow (Yellow) Urine Clarity Clear (Clear) Urine pH 7.0 (5.0-9.0) Urine Specific [place] 1.021 (1.001-1.035) Urine Protein Trace (Negative) Urine Ketones Negative (Negative) Urine Blood Negative /uL (Negative) Urine Nitrite Negative (Negative) Urine Bilirubin Negative (Negative) Urine Urobilinogen Normal mg/dL (Negative) Urine Leukocyte Esterase Negative /uL (Negative) Urine RBC 3 /hpf (0 - 3) Urine Microscopic WBC 1 /HPF (0-3) Urine Squamous Epithelial Cells Few /hpf (<5) Urine Bacteria None seen /hpf (None Seen) Urine Mucus Few (None Seen) Urine Creatinine 205.29 mg/dL (30.0-125.0) Urine Protein/Creatinine Ratio 0.12 Urine Sodium 192 mmol/L (40-220) Urine Glucose Normal mg/dL (Normal) Urine Total Protein 25.5 mg/dL (1-14) Test 09/06/25 10:16 09/05/25 18:53 09/05/25 14:49 Urine Osmolality 255 mOsm/kg Serum Osmolality 272 mOsm/kg (278-298) Troponin I High Sensitivity 18 ng/L (</=54) Lactic Acid Level 1.0 mmol/L (0.4-2.0) Other Laboratory Tests 09/09/25 06:27 Brief Hx & Hospital Course: 70-year-old male with a history of COPD diabetes hypertension previous history of pneumonia tracheotomy came in car generalized weakness and shortness of breaths found to have severe hyponatremia with sodium of 109 improved with a sodium 3 percent and again transitioned to dextrose seen by Nephrology Dr. Alcantar and . Tamiflu to was 70 at the time of discharge community- acquired pneumonia treated with the Rocephin and azithromycin with a which he has shown significant improvement we will be discharged to [facility] for receiving two more weeks of IV antibiotics for pneumonia and for close follow up in the hyponatremia. Patient lives alone and agrees for [facility] facility placement General condition poor but stable at the time of discharge Consults/Reason for consult Nephrology Dr. Katharine Luther Operations or Procedures None Condition at Discharge: Fair Final Diagnosis/Problems List Acute generalized weakness Sepsis possibly secondary to pneumonia Acute left lower lobe community-acquired pneumonia Gram-positive versus Gram-negative: Rocephin azithromycin Acute severe hyponatremia sodium 109, due to excessive water given 3 percent sodium chloride improved to 128 consult by supervisor model making appreciated placed on desmopressin COPD exacerbation med neb Acute dehydration: Continue D5 W Diabetes mellitus type 2 Hypertension History of pneumonia GERD History of tracheostomy Discharge Disposition: Care Home Facility Discharge Instruct/Medications Diet: Cardiac 2g Na,low cholest Activity: Light activity Follow Up/Referral: Follow up with the shelter Medications: Rocephin 1 g IV daily for two weeks Azithromycin 500 mg IV daily for two weeks Both for pneumonia see List for other medications Scheduled Amlodipine Besylate (Amlodipine Besylate), 1 TAB PO QPM, (Reported) Atorvastatin Calcium (Atorvastatin Calcium), 1 TAB PO HS, (Reported) Azithromycin (Azithromycin), 250 MG PO DAILY Carvedilol (Carvedilol), 1 TAB PO BID, (Reported) Cholecalciferol (Vitamin D-3), 1 TAB PO DAILY, (Reported) Dapagliflozin Propanediol (Farxiga), 1 TAB PO DAILY, (Reported) Ergocalciferol (Vitamin D 37786 Unit), 50,000 UNIT PO QWEEKLY Furosemide (Furosemide), 1 TAB PO DAILY Glipizide (Glipizide), 1 TAB PO DAILY, (Reported) Losartan Potassium & Hydrochlo (Losartan Potassium/Hydroc), 1 TAB PO DAILY Prednisone (Prednisone), 5 MG PO DAILY Prednisone (Prednisone), 10 MG PO DAILY Prednisone (Prednisone), 20 MG PO DAILY Prednisone (Prednisone), 40 MG PO DAILY Sitagliptin Phosphate (Januvia), 1 TAB PO DAILY, (Reported) Umeclidinium-Vilanterol (Anoro Ellipta 62.5-25 Mcg/INH), 1 AER IN DAILY, (Reported) Scheduled PRN Albuterol Sulfate (Albuterol Sulfate Hfa), 2 PUFF IN Q6HP PRN for WHEEZING, (Reported) Famotidine (Famotidine), 1 TAB PO BID PRN for HEARTBURN, (Reported) Discharge Statement: "Patient was advised to return to the ER or call 911 if any headaches, dizziness, shortness of breath, chest pain, abdominal pain, bleeding, fevers, or worsening of medical condition. Patient was counseled about treatment plan, medications, possible side effects, patientverbalized understanding. All questions were answered to the best of my ability. This discharge took greater then 30 minutes in planning, reviewing documentation, counseling the patient, and discussing with other team members." ASSESSMENT ASSESSMENT Hospital Course Uneventful Assessment Acute generalized weakness Sepsis possibly secondary to pneumonia Acute left lower lobe community-acquired pneumonia Gram-positive versus Gram- negative: Rocephin azithromycin Acute severe hyponatremia sodium 109, due to excessive water given 3 percent sodium chloride improved to 128 consult by supervisor model making appreciated placed on desmopressin COPD exacerbation med neb Acute dehydration: Continue D5 W Diabetes mellitus type 2 Hypertension History of pneumonia GERD History of tracheostomy Date of Service: Sep 10, 2025 Billing Provider: IVORY KEITH MD Common Visit Codes: [id number] DISCH DAY >30min IVORY KEITH MD Sep 10, 2025 11:52
== END 2025-09-10 18:10 | DRG 871 ==
LOC: EDBD 14:25 → ER 14:25 → EDUNIT# 14:25 → OVERFLOW 22:02 → TELE-WESTW 09-07 18:15
PROVIDERS: ADMIT Family Medicine; ATTEND Family Medicine
PROC: 5A09357 Assistance with Respiratory Ventilation, Less than 24 Consecutive Hours, Continuous Positive Airway Pressure (ICD-10-PCS; 2025-09-06)
PROC: 5A09357 Assistance with Respiratory Ventilation, Less than 24 Consecutive Hours, Continuous Positive Airway Pressure (ICD-10-PCS; 2025-09-07)
PROC: 5A09357 Assistance with Respiratory Ventilation, Less than 24 Consecutive Hours, Continuous Positive Airway Pressure (ICD-10-PCS; 2025-09-08)
PROC: 5A09357 Assistance with Respiratory Ventilation, Less than 24 Consecutive Hours, Continuous Positive Airway Pressure (ICD-10-PCS; 2025-09-09)
PROC: 05HF33Z Insertion of Infusion Device into Left Cephalic Vein, Percutaneous Approach (ICD-10-PCS; principal; 2025-09-10)
PROC: B54NZZA Ultrasonography of Left Upper Extremity Veins, Guidance (ICD-10-PCS; 2025-09-10)
DX: A41.59 Other Gram-negative sepsis (principal); J15.69 Pneumonia due to other Gram-negative bacteria; J15.9 Unspecified bacterial pneumonia; E87.1 Hypo-osmolality and hyponatremia; J44.0 Chronic obstructive pulmonary disease with (acute) lower respiratory infection; E11.9 Type 2 diabetes mellitus without complications; D64.9 Anemia, unspecified; E86.0 Dehydration; N17.9 Acute kidney failure, unspecified; I10 Essential (primary) hypertension; J44.1 Chronic obstructive pulmonary disease with (acute) exacerbation; I95.9 Hypotension, unspecified; R74.01 Elevation of levels of liver transaminase levels; K21.9 Gastro-esophageal reflux disease without esophagitis; Z88.6 Allergy status to analgesic agent; Z79.2 Long term (current) use of antibiotics; Z80.0 Family history of malignant neoplasm of digestive organs; Z81.8 Family history of other mental and behavioral disorders; Z82.49 Family history of ischemic heart disease and other diseases of the circulatory system; Z82.5 Family history of asthma and other chronic lower respiratory diseases; Z83.3 Family history of diabetes mellitus
CPT/HCPCS: 36415; 71045; 80048; 80053; 81001; 82570; 82962; 83605; 83930; 83935; 84156; 84300; 84484; 85025; 87040; 87278; 87426; 87804; 93005; 94640; 94660; 96360; 97163; 99291; G0378; J0692; J1815; J3490